=== PATIENT | female | born 1955 | race American Indian/Alaskan Native ===

== ENCOUNTER 2019-11-08 20:57 | Emergency (ER) | payer MEDICARE ==
--- NOTE | 2019-11-08 21:19 | Emergency Department Report ---
ED General Adult HPI - General Chief complaint: Pain General Stated complaint: DEHYDRATION/HEAD/NECK PAIN PUI?: No Time Seen by Provider: 11/08/19 21:15 Source: patient, police, EMS, RN notes reviewed Mode of arrival: Stretcher Limitations: No Limitations - History of Present Illness Initial comments: Patient is a 64-year-old female that [facility] for management of her chronic pain and possible dehydration. Patient was sent here from the [facility] the [facility]. Report received from the accompanying officer and the EMS. The officer states that the patient has been the [facility] for 5 days for chronic pain. Patient states she has chronic neck and back pain, degenerative disc in the neck and back. Patient states she is not had any pain medication. Patient states compliant with all of her medications. Patient denies dry mouth. Patient denies palpitations. Patient denies chest pain or shortness of breath. Patient denies fever and chills. Patient denies cough. Patient denies abdominal pain. Patient denies nausea and vomiting. Patient denies recent travel. Patient denies recent international travel. Patient denies exposure to the novel coronavirus. Patient denies sick contacts. Patient denies fever and chills. Patient denies cough. Patient denies diarrhea. Patient denies coming in contact with anybody with symptoms of the novel coronavirus. Patient states she has a history of diabetes, hyperlipidemia, depression, seizures, bipolar, hypertension, CHF and anticoagulation therapy with Eliquis. -: Gradual, year(s) Location: neck, back Radiation: non-radiation Severity scale (0 -10): 10 Quality: stabbing Consistency: constant Improves with: rest Worsens with: movement Associated Symptoms: denies: confusion, chest pain, cough, diaphoresis, fever /chills, headaches, loss of appetite, malaise, nausea/vomiting, rash, seizure, shortness of breath, syncope, weakness Treatments Prior to Arrival: none - Related Data Home Medications Medication Instructions Recorded Confirmed Last Taken Bupropion HCl [Wellbutrin XL] 1 tab PO DAILY 01/28/14 09/11/19 01/28/14 Gabapentin 1 cap PO TID 01/28/14 09/11/19 01/29/14 Rosuvastatin (Nf) [Crestor] 1 tab PO DAILY 01/28/14 09/11/19 01/29/14 carvediloL [Coreg] 1 tab PO BID 01/28/14 09/11/19 01/29/14 metFORMIN [Glucophage] 1 tab PO BID 01/28/14 09/11/19 01/29/14 Ergocalciferol [Vitamin D2] 1 cap PO QWEEK 01/30/14 09/11/19 01/29/14 Valsartan/Hydrochlorothiazide 1 tab PO DAILY 01/30/14 09/11/19 01/29/14 [Valsartan-Hctz 320-25 mg] AtorvaSTATin 80 mg PO HS 09/09/19 09/11/19 Unknown Escitalopram 15 mg PO DAILY 09/09/19 09/11/19 Unknown Ferrous Sulfate 325 mg PO DAILY 09/09/19 09/11/19 Unknown Lasix TAB 40 mg PO DAILY MDD 80 09/09/19 09/11/19 Unknown Meloxicam 15 mg PO DAILY 09/09/19 09/11/19 Unknown hydrALAZINE 25 mg PO BID 09/09/19 09/11/19 Unknown lamoTRIgine [lamoTRIgine ER] 25 mg PO BID 09/09/19 09/11/19 Unknown traZODone 150 mg PO HS 09/09/19 09/11/19 Unknown Previous Rx's Medication Instructions Recorded Last Taken Type Acetaminophen [Acetaminophen TAB] 650 mg PO Q4H PRN tablet 09/06/19 Unknown Rx Apixaban [Eliquis] 5 mg PO BID #14 tablet 09/06/19 Unknown Rx Apixaban [Eliquis] 5 mg PO BID #60 tablet 09/06/19 Unknown Rx Lispro Insulin [HumaLOG] 0 unit SUB-Q ACHS units 09/06/[address] [Arun Chavez] 500 mg PO BID #60 tablet 09/10/19 Unknown Rx OLANzapine [ZyPREXA] 5 mg PO QHS #30 tablet 09/10/19 Unknown Rx Magnesium Oxide [Mag-Ox] 400 mg PO DAILY 30 Days #30 tablet 11/08/19 Unknown Rx Potassium Chloride [K-Dur] 20 meq PO BID 30 Days #60 tab 11/08/19 Unknown Rx Allergies Allergy/AdvReac Type Severity Reaction Status Date / Time aspirin Allergy ABD PAIN Verified 01/24/14 14:11 ibuprofen Allergy Unknown Verified 09/04/19 06:25 latex Allergy Rash Verified 01/24/14 14:11 lithium Allergy Hives Verified 01/24/14 14:11 peanut Allergy Unknown Verified 09/04/19 06:25 Penicillins Allergy Itching Verified 01/24/14 14:11 quetiapine [From Seroquel] Allergy Unknown Verified 09/04/19 06:25 shellfish derived Allergy Vomiting Verified 09/04/19 06:25 tomato Allergy Unknown Verified 09/04/19 06:25 zolpidem [From Ambien] Allergy Unknown Verified 09/04/19 06:25 ED Review of Systems ROS: Stated complaint: DEHYDRATION/HEAD/NECK PAIN Other details as noted in HPI Constitutional: denies: chills, fever Eyes: denies: eye pain, eye discharge, vision change ENT: denies: ear pain, throat pain Respiratory: denies: cough, shortness of breath, wheezing Cardiovascular: denies: chest pain, palpitations Endocrine: no symptoms reported Gastrointestinal: denies: abdominal pain, nausea, diarrhea Genitourinary: denies: urgency, dysuria, discharge Musculoskeletal: as per HPI, back pain. denies: joint swelling, arthralgia Skin: denies: rash, lesions Neurological: denies: headache, weakness, paresthesias Psychiatric: denies: anxiety, depression Hematological/Lymphatic: denies: easy bleeding, easy bruising ED Past Medical Hx - Past Medical History Previous Medical History?: Yes Hx Hypertension: Yes Hx Heart Attack/AMI: Yes Hx Congestive Heart Failure: Yes Hx Diabetes: Yes Hx Pulmonary Embolism: Yes Hx Renal Disease: Yes (No diaylsis in one year.) Hx Psychiatric Treatment: Yes (bipolar schizo) Hx Asthma: Yes Hx COPD: Yes Hx Tuberculosis: No Hx HIV: No Additional medical history: Lupus. 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 - Surgical History Past Surgical History?: Yes Hx Appendectomy: Yes - Family History Family history: no significant - Social History Smoking Status: Former Smoker Substance Use Type: None - Medications Home Medications: Home Medications Medication Instructions Recorded Confirmed Last Taken Type Bupropion HCl [Wellbutrin XL] 1 tab PO DAILY 01/28/14 09/11/19 01/28/14 History Gabapentin 1 cap PO TID 01/28/14 09/11/19 01/29/14 History Rosuvastatin (Nf) [Crestor] 1 tab PO DAILY 01/28/14 09/11/1901/29/14 History carvediloL [Coreg] 1 tab PO BID 01/28/14 09/11/19 01/29/14 History metFORMIN [Glucophage] 1 tab PO BID 01/28/14 09/11/19 01/29/14 History Ergocalciferol [Vitamin D2] 1 cap PO QWEEK 01/30/14 09/11/19 01/29/14 History Valsartan/Hydrochlorothiazide 1 tab PO DAILY 01/30/14 09/11/19 01/29/14 History [Valsartan-Hctz 320-25 mg] Acetaminophen [Acetaminophen TAB] 650 mg PO Q4H PRN tablet 09/06/19 09/11/19 Unknown Rx Apixaban [Eliquis] 5 mg PO BID #14 tablet 09/06/19 09/11/19 Unknown Rx Apixaban [Eliquis] 5 mg PO BID #60 tablet 09/06/19 09/11/19 Unknown Rx Lispro Insulin [HumaLOG] 0 unit SUB-Q ACHS units 09/06/19 09/11/19 Unknown Rx AtorvaSTATin 80 mg PO HS 09/09/19 09/11/19 Unknown History Escitalopram 15 mg PO DAILY 09/09/19 09/11/19 Unknown History Ferrous Sulfate 325 mg PO DAILY 09/09/19 09/11/19 Unknown History Lasix TAB 40 mg PO DAILY MDD 80 09/09/19 09/11/19 Unknown History Meloxicam 15 mg PO DAILY 09/09/19 09/11/19 Unknown History hydrALAZINE 25 mg PO BID 09/09/19 09/11/19 Unknown History lamoTRIgine [lamoTRIgine ER] 25 mg PO BID 09/09/19 09/11/19 Unknown History traZODone 150 mg PO HS 09/09/19 09/11/19 Unknown History Divalproex [Arun Chavez] 500 mg PO BID #60 tablet 09/10/19 09/11/19 Unknown Rx OLANzapine [ZyPREXA] 5 mg PO QHS #30 tablet 09/10/19 09/11/19 Unknown Rx Magnesium Oxide [Mag-Ox] 400 mg PO DAILY 30 Days #30 tablet 11/08/19 Unknown Rx Potassium Chloride [K-Dur] 20 meq PO BID 30 Days #60 tab 11/08/19 Unknown Rx ED Physical Exam - General Limitations: No Limitations, Other General appearance: alert, in no apparent distress - Head Head exam: Present: atraumatic, normocephalic - Eye Eye exam: Present: normal appearance - ENT ENT exam: Present: mucous membranes moist - Neck Neck exam: Present: normal inspection - Respiratory Respiratory exam: Present: normal lung sounds bilaterally. Absent: respiratory distress - Cardiovascular Cardiovascular Exam: Present: regular rate, normal rhythm. Absent: systolic murmur, diastolic murmur, rubs, gallop - GI/Abdominal GI/Abdominal exam: Present: soft, normal bowel sounds - Extremities Exam Extremities exam: Present: normal inspection - Back Exam Back exam: Present: normal inspection - Neurological Exam Neurological exam: Present: alert, oriented X3 - Psychiatric Psychiatric exam: Present: normal affect, normal mood - Skin Skin exam: Present: warm, dry, intact, normal color. Absent: rash ED Course Vital Signs 11/08/19 11/08/19 11/09/19 21:00 21:18 00:27 Temperature 98.5 F Pulse Rate 75 81 Respiratory 10 L 16 19 Rate Blood Pressure 177/94 152/73 [Right] O2 Sat by Pulse 100 98 97 Oximetry - Reevaluation(s) Reevaluation #1: Patient states she is feeling better. Patient states her pain has decreased significantly. I discussed all results and clinical findings with patient. I discussed plan of care with patient. Patient agrees with plan of care. Patient is stable for discharge. Patient will be discharged home. Patient given discharge instructions. Patient voiced understanding of discharge instructions. 11/08/19 23:25 ED Medical Decision Making - Lab Data Result diagrams: 11/08/19 21:33 11/08/19 21:33 - Medical Decision Making Patient is a 64-year-old female that is currently a prisoner in [facility] that was sent here for medical evaluation and possible dehydration. Patient complains of chronic neck and back pain. I discussed with the patient that the chronic neck and back pain needs to be managed by an outpatient physician. Patient given Decadron 4 mg and her pain decreased. Patient had labs done which were consistent with hypokalemia and hypomagnesemia. Patient given oral potassium and magnesium in the ER. Patient discharged with a pre scription for magnesium and potassium. [facility] require [facility] the [facility]. Patient given discharge instructions. Patient stable for discharge. Instructions also given to the accompanying police worker. - Differential Diagnosis Chronic back pain, chronic neck pain, dehydration, electrolyte imbalance. Critical care attestation.: If time is entered above; I have spent that time in minutes in the direct care of this critically ill patient, excluding procedure time. ED Disposition Clinical Impression: Hypokalemia, Hypomagnesemia Chronic back pain Qualifiers: Back pain location: low back pain Back pain laterality: bilateral Sciatica presence: without sciatica Qualified Code(s): M54.5 - Low back pain Disposition: DC- TO HOME OR SELFCARE Is pt being admited?: No Does the pt Need Aspirin: No Condition: Stable Instructions: Hypokalemia (ED) Additional Instructions: Patient to be discharged from the ER return to [facility] with [facility]. Patient to follow-up with primary care in 2 to 3 days. Patient will require potassium and magnesium check in 2 to 3 days. Patient to rest. Patient to increase water. Patient to follow-up with an orthopedist or pain management for her chronic neck and back pain. Patient to take Tylenol or ibuprofen as needed for pain. Patient to take meds as directed. Patient to return to the ER if condition worsens, changes or new symptoms arise. Prescriptions: Potassium Chloride [K-Dur] 20 meq PO BID 30 Days #60 tab Magnesium Oxide [Mag-Ox] 400 mg PO DAILY 30 Days #30 tablet Referrals: PRIMARY CARE, [Primary Care Provider] - 2-3 Days Time of Disposition: 23:25
[2019-11-08] MEDS ORDERED: dexAMETHasone 4 MG/ML VIAL IV ONE (21:26)
[2019-11-08] MEDS ORDERED: dexAMETHasone 4 MG/ML VIAL ONE (21:28)
[2019-11-08 21:43] LABS: Hematocrit 29.1 % (30.3-42.9); Hemoglobin 10.5 gm/dl (10.1-14.3); Mean Corpuscular HGB Conc 36 % (30-34); Mean Corpuscular Volume 84 fl (79-97); Platelet Count 172 K/mm3 (140-440); Red Blood Count 3.46 M/mm3 (3.65-5.03); Red Cell Distribution Width 15.7 % (13.2-15.2)
[2019-11-08 22:08] LABS: Alanine Aminotransferase 9 units/L (7-56); Albumin 3.1 g/dL (3.9-5); BUN/Creatinine Ratio 16; Blood Urea Nitrogen 16 mg/dL (7-17); Calcium 9.4 mg/dL (8.4-10.2); Hemolysis Index 4
[2019-11-08] MEDS ORDERED: POTASSIUM CHLORIDE ER 20 MEQ TAB PO ONE (22:24)
[2019-11-08] MEDS ORDERED: MAGNESIUM OXIDE 400 MG TAB PO ONE (23:23)
[2019-11-09 00:28] VITALS: BP 152/73
== END 2019-11-09 00:37 | disposition home or self-care (01) ==
LOC: ED 20:57
DX: E87.6 Hypokalemia (principal); E83.42 Hypomagnesemia; M54.6 Pain in thoracic spine; G89.29 Other chronic pain; I50.9 Heart failure, unspecified; I11.0 Hypertensive heart disease with heart failure; I25.2 Old myocardial infarction; E11.9 Type 2 diabetes mellitus without complications; J44.9 Chronic obstructive pulmonary disease, unspecified; F20.9 Schizophrenia, unspecified; Z90.49 Acquired absence of other specified parts of digestive tract; Z87.891 Personal history of nicotine dependence; Z79.84 Long term (current) use of oral hypoglycemic drugs; Z79.899 Other long term (current) drug therapy; Z88.0 Allergy status to penicillin; Z88.8 Allergy status to other drugs, medicaments and biological substances; Z91.010 Allergy to peanuts; Z91.040 Latex allergy status
CPT/HCPCS: 36415; 80053; 83735; 85027; 96374; 99284; J1100

== ENCOUNTER 2019-11-18 07:48 | Observation (INO) | payer MEDICARE, OTHER ==
[2019-11-18] MEDS ORDERED: ONDANSETRON 4 MG/2 ML INJ IV ONE (10:34)
[2019-11-18] MEDS ORDERED: NITROGLYCERIN 2% OINT 1 GM TP ONE (10:34)
[2019-11-18] MEDS ORDERED: fentaNYL 100 MCG/2 ML INJ IV ONE (10:34)
--- NOTE | 2019-11-18 10:38 | Emergency Department Report ---
HPI - General Chief Complaint: Chest Pain Time Seen by Provider: 11/18/19 10:25 - HPI HPI: Room 2 The patient is a 64-year-old female present with a chief complaint of chest pain. Patient states she has had daily chest pain for 1 year and this worsened a couple months ago. Patient describes her pain as sharp and intermittent in nature. Patient admits to shortness of breath, nausea/vomiting and diaphoresis. Patient gives her pain a score of 10/10. The patient states her last cardiac catheterization occurred approximately 3 years ago when she had a heart stent placed ED Past Medical Hx - Past Medical History Previous Medical History?: Yes Hx Hypertension: Yes Hx Heart Attack/AMI: Yes Hx Congestive Heart Failure: Yes Hx Diabetes: Yes Hx Pulmonary Embolism: Yes Hx Renal Disease: Yes (No diaylsis in one year.) Hx Psychiatric Treatment: Yes (bipolar schizo) Hx Asthma: Yes Hx COPD: Yes Additional medical history: Lupus. 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 - Surgical History Past Surgical History?: Yes Hx Appendectomy: Yes - Family History Family history: no significant - Social History Smoking Status: Never Smoker Substance Use Type: None - Medications Home Medications: Home Medications Medication Instructions Recorded Confirmed Last Taken Type Bupropion HCl [Wellbutrin XL] 1 tab PO DAILY 01/28/14 09/11/19 01/28/14 History Gabapentin 1 cap PO TID 01/28/14 09/11/19 01/29/14 History Rosuvastatin (Nf) [Crestor] 1 tab PO DAILY 01/28/14 09/11/19 01/29/14 History carvediloL [Coreg] 1 tab PO BID 01/28/14 09/11/19 01/29/14 History metFORMIN [Glucophage] 1 tab PO BID 01/28/14 09/11/19 01/29/14 History Ergocalciferol [Vitamin D2] 1 cap PO QWEEK 01/30/14 09/11/19 01/29/14 History Valsartan/Hydrochlorothiazide 1 tab PO DAILY 01/30/14 09/11/19 01/29/14 History [Valsartan-Hctz 320-25 mg] Acetaminophen [Acetaminophen TAB] 650 mg PO Q4H PRN tablet 09/06/19 09/11/19 Unknown Rx Apixaban [Eliquis] 5 mg PO BID #14 tablet 09/06/19 09/11/19 Unknown Rx Apixaban [Eliquis] 5 mg PO BID #60 tablet 09/06/19 09/11/19 Unknown Rx Lispro Insulin [HumaLOG] 0 unit SUB-Q ACHS units 09/06/19 09/11/19 Unknown Rx AtorvaSTATin 80 mg PO HS 09/09/19 09/11/19 Unknown History Escitalopram 15 mg PO DAILY 09/09/19 09/11/19 Unknown History Ferrous Sulfate 325 mg PO DAILY 09/09/19 09/11/19 Unknown History Lasix TAB 40 mg PO DAILY MDD 80 09/09/19 09/11/19 Unknown History Meloxicam 15 mg PO DAILY 09/09/19 09/11/19 Unknown History hydrALAZINE 25 mg PO BID 09/09/19 09/11/19 Unknown History lamoTRIgine [lamoTRIgine ER] 25 mg PO BID 09/09/19 09/11/19 Unknown History traZODone 150 mg PO HS 09/09/19 09/11/[address] [Arun Chavez] 500 mg PO BID #60 tablet 09/10/19 09/11/19 Unknown Rx OLANzapine [ZyPREXA] 5 mg PO QHS #30 tablet 09/10/19 09/11/19 Unknown Rx Magnesium Oxide [Mag-Ox] 400 mg PO DAILY 30 Days #30 tablet 11/08/19 Unknown Rx Potassium Chloride [K-Dur] 20 meq PO BID 30 Days #60 tab 11/08/19 Unknown Rx ED Review of Systems ROS: Stated complaint: MEDICAL EVAL Other details as noted in HPI Constitutional: diaphoresis Respiratory: shortness of breath Cardiovascular: chest pain Endocrine: no symptoms reported Gastrointestinal: nausea, vomiting Physical Exam - Physical Exam Vital Signs: Vital Signs 11/18/19 11/18/19 09:31 09:36 Temperature 98.8 F Pulse Rate 87 Respiratory 18 18 Rate Blood Pressure 129/35 O2 Sat by Pulse 98 Oximetry Physical Exam: GENERAL: The patient is well-developed well-nourished female lying on stretcher not appearing to be in acute distress. [] HEENT: Normocephalic. Atraumatic. Extraocular motions are intact. Patient has moist mucous membranes. NECK: Supple. Trachea midline CHEST/LUNGS: Clear to auscultation. There is no respiratory distress noted. HEART/CARDIOVASCULAR: Regular. There is no tachycardia. There is no gallop rub or murmur. ABDOMEN: Abdomen is soft, nontender. Patient has normal bowel sounds. There is no abdominal distention. SKIN: There is no rash. There is no edema. There is no diaphoresis. NEURO: The patient is awake, alert, and oriented. The patient is cooperative. The patient has normal speech MUSCULOSKELETAL: There is no evidence of acute injury. ED Course Vital Signs 11/18/19 11/18/19 09:31 09:36 Temperature 98.8 F Pulse Rate 87 Respiratory 18 18 Rate Blood Pressure 129/35 O2 Sat by Pulse 98 Oximetry ED Medical Decision Making - Lab Data Result diagrams: 11/18/19 10:26 11/18/19 10:26 Laboratory Tests 11/18/19 11/18/19 11/18/19 10:26 10:26 10:26 WBC 10.9 RBC 4.14 Hgb 12.4 Hct 36.4 MCV 88 MCH 30 MCHC 34 RDW 16.6 H Plt Count 150 Lymph % (Auto) [employer] Brewster % (Auto) [employer] Eos % (Auto) [employer] Baso % (Auto) [employer] Lymph # (Auto) [employer] [place]ster # (Auto) [employer] Eos # (Auto) [employer] Baso # (Auto) [employer] Seg Neutrophils % [employer] Seg Neutrophils # [employer] PT 13.0 INR 0.96 Sodium 133 L Potassium 3.9 Chloride 99.9 Carbon Dioxide 23 Anion Gap 14 BUN 24 H Creatinine 1.3 H Estimated GFR 50 BUN/Creatinine Ratio 18 Glucose 148 H Calcium 11.0 H Magnesium 1.50 L Troponin T 0.014 - EKG Data -: EKG Interpreted by Me EKG shows normal: sinus rhythm Rate: normal - EKG Data When compared to previous EKG there are: previous EKG unavailable Interpretation: other (No ischemic changes seen) - Radiology Data Radiology results: image reviewed (Chest x-ray) interpreted by me: Chest x-ray-no focal infiltrates, no pneumothorax Critical care attestation.: If time is entered above; I have spent that time in minutes in the direct care of this critically ill patient, excluding procedure time. ED Disposition Clinical Impression: Chest pain Disposition: OP ADMIT IP TO THIS HOSP Is pt being admited?: Yes Does the pt Need Aspirin: No Condition: Stable Instructions: Chest Pain (ED) Referrals: LENARD FOSS MD [Primary Care Provider] - 3-5 Days Time of Disposition: 12:18 (Hospitalist notified (Dr. Rodarte)) HEART Score - HEART Score History: Moderately suspicious EKG: Normal Age: 45-65 Risk factors: > 3 risk factors or hx of atherosclerotic disease Troponin: Troponin T 0.014 ng/mL (0.00-0.029) 11/18/19 10:26 Troponin: < normal limit HEART Score: 4
[2019-11-18 11:16] LABS: Hematocrit 36.4 % (30.3-42.9); Hemoglobin 12.4 gm/dl (10.1-14.3); Mean Corpuscular HGB Conc 34 % (30-34); Mean Corpuscular Volume 88 fl (79-97); Platelet Count 150 K/mm3 (140-440); Red Blood Count 4.14 M/mm3 (3.65-5.03); Red Cell Distribution Width 16.6 % (13.2-15.2)
[2019-11-18 11:21] LABS: INR 0.96 (0.87-1.13)
[2019-11-18] MEDS ORDERED: MAGNESIUM SULFATE 2 GM/50 ML BAG IV ONE (12:01)
[2019-11-18] MEDS ORDERED: SODIUM CHLORIDE 0.9% 1000 ML 2,000 ML IV ONE (12:46)
[2019-11-18] MEDS ORDERED: SODIUM CHLORIDE 0.9% 1000 ML 2,000 ML ONE (12:55)
[2019-11-18] MEDS ORDERED: PANTOPRAZOLE 40 MG TAB PO ONE (13:30)
--- NOTE | 2019-11-18 14:46 | Cat Scan Report ---
CTA CHEST WITH IV CONTRAST INDICATION: Chest pain. TECHNIQUE: Axial CT images were obtained through the chest after injection of 100 cc Omni 350 IV contrast. 3 yovana ne MIP reconstructions were produced. All CT scans at this location are performed using CT dose reduc tion for ALARA by means of automated exposure control. COMPARISON: CTA chest 09/04/2019 FINDINGS: PULMONARY ARTERIES: Multiple moderate sized acute nonocclusive emboli within right upper, middle and lower lobe segmental pulmonary arteries. Several somewhat linear oriented filling defects are seen wi thin the left upper and lower lobe segmental pulmonary arteries. THORACIC AORTA: No acute abnormality. HEART: No definite CT evidence for RV strain. CORONARY ARTERIES: No significant calcification. PLEURA: No pleural effusion. No pneumothorax. LYMPH NODES: No significant adenopathy. LUNGS: Mild groundglass/increased interstitial markings both lower lobes and right upper lobe charact eristic for mild pulmonary edema ADDITIONAL FINDINGS: None. UPPER ABDOMEN: Gallbladder surgically absent. 2 simple 1 cm right renal cysts. Probable hyperdense he morrhagic 9 mm left renal cyst again noted. SKELETAL STRUCTURES: No significant osseous abnormality. IMPRESSION: 1. Acute moderate bilateral pulmonary emboli. 2. Probable mild CHF. CRITICAL RESULT: Time of Discovery: 1:38 PM central time 11/18/2019 Time of Communication: 1:39 PM Licensed Practitioner Receiving Report: Dr. Epps Read Back Performed: Yes. Signer Name: Geoff Borrego MD Signed: 11/18/2019 2:42 PM Workstation Name: [id number]
[2019-11-18] MEDS ORDERED: APIXABAN 5 MG TAB ONE (15:05)
[2019-11-18] MEDS ORDERED: APIXABAN 5 MG TAB PO SCH (15:30)
[2019-11-18 17:20] VITALS: BP 145/60
--- NOTE | 2019-11-21 12:30 | XRay Report ---
CHEST 1 VIEW INDICATION: Chest Pain. COMPARISON: 09/11/2019 FINDINGS: Support devices: None. Heart: Within normal limits. Lungs/Pleura: No acute air space or interstitial disease. Additional findings: None. IMPRESSION: No acute findings. Signer Name: Jordin Rosales Jr, MD Signed: 11/21/2019 12:25 PM Workstation Name: [id number]
== END 2019-11-18 17:21 ==
LOC: ED 07:48 → 4A 13:08
PROVIDERS: ADMIT Internal Medicine; ATTEND Internal Medicine
DX: R07.89 Other chest pain (principal); I11.0 Hypertensive heart disease with heart failure; I50.9 Heart failure, unspecified; E11.9 Type 2 diabetes mellitus without complications; J44.9 Chronic obstructive pulmonary disease, unspecified; F20.89 Other schizophrenia; F31.9 Bipolar disorder, unspecified; M32.9 Systemic lupus erythematosus, unspecified; Z86.711 Personal history of pulmonary embolism; Z90.49 Acquired absence of other specified parts of digestive tract; Z79.4 Long term (current) use of insulin
CPT/HCPCS: 36415; 71045; 71275; 80048; 83735; 84484; 85025; 85379; 85610; 93005; 96365; 96375; 99285; G0378; J2405; J3010; J3475; J7030; Q9967

== ENCOUNTER 2019-12-14 10:14 | Inpatient (IN) | payer MEDICARE ==
[2019-12-14] MEDS ORDERED: SODIUM CHLORIDE 0.9% 500 ML 500 ML IV ONE ×2 (10:26→11:10)
[2019-12-14] MEDS ORDERED: ATROPINE 1 MG/ML VIAL IV ONE (10:27)
[2019-12-14] MEDS ORDERED: SODIUM CHLORIDE 0.9% 1000 ML 1,000 ML ONE ×3 (10:30→20:11)
--- NOTE | 2019-12-14 10:35 | Emergency Department Report ---
HPI - General Time Seen by Provider: 12/14/19 10:23 - HPI HPI: This is a 64-year-old female who presents to the emergency department via EMS from a local [facility] facility with the initial call for altered mental status. The patient is altered and therefore is a poor historian. She is nonverbal at this time. Patient appears to have a history of previous pulmonary embolism, coronary artery disease with a coronary stent, uwh-[id number]-zycolpese diabetes, asthma, lupus, COPD, hypertension, CHF, chronic kidney disease not on hemodialysis. The patient did not receive anything for her symptoms in route. She had a blood sugar of 113 with EMS. Patient was here on 11/20/2019 with a complaint of chest pain at that time. She was evaluated in the emergency department and ultimately discharged by the hospitalist service from the emergency department. Based on previous records, the patient last had a heart catheterization about 3 years ago in which a cardiac stent was placed. ED Past Medical Hx - Past Medical History Hx Hypertension: Yes Hx Heart Attack/AMI: Yes Hx Congestive Heart Failure: Yes Hx Diabetes: Yes Hx Pulmonary Embolism: Yes Hx Renal Disease: Yes (No diaylsis in one year.) Hx Psychiatric Treatment: Yes (bipolar schizo) Hx Asthma: Yes Hx COPD: Yes Additional medical history: Lupus. 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 - Surgical History Hx Appendectomy: Yes - Social History Smoking Status: Never Smoker Substance Use Type: None - Medications Home Medications: Home Medications Medication Instructions Recorded Confirmed Last Taken Type Bupropion HCl [Wellbutrin XL] 1 tab PO DAILY 01/28/14 09/11/19 01/28/14 History Gabapentin 1 cap PO TID 01/28/14 09/11/19 01/29/14 History Rosuvastatin (Nf) [Crestor] 1 tab PO DAILY 01/28/14 09/11/19 01/29/14 History carvediloL [Coreg] 1 tab PO BID 01/28/14 09/11/19 01/29/14 History metFORMIN [Glucophage] 1 tab PO BID 01/28/14 09/11/19 01/29/14 History Ergocalciferol [Vitamin D2] 1 cap PO QWEEK 01/30/14 09/11/19 01/29/14 History Valsartan/Hydrochlorothiazide 1 tab PO DAILY 01/30/14 09/11/19 01/29/14 History [Valsartan-Hctz 320-25 mg] Acetaminophen [Acetaminophen TAB] 650 mg PO Q4H PRN tablet 09/06/19 09/11/19 Unknown Rx Apixaban [Eliquis] 5 mg PO BID #14 tablet 09/06/19 09/11/19 Unknown Rx Apixaban [Eliquis] 5 mg PO BID #60 tablet 09/06/19 09/11/19 Unknown Rx Lispro Insulin [HumaLOG] 0 unit SUB-Q ACHS units 09/06/19 09/11/19 Unknown Rx AtorvaSTATin 80 mg PO HS 09/09/19 09/11/19 Unknown History Escitalopram 15 mg PO DAILY 09/09/19 09/11/19 Unknown History Ferrous Sulfate 325 mg PO DAILY 09/09/19 09/11/19 Unknown History Lasix TAB 40 mg PO DAILY MDD 80 09/09/19 09/11/19 Unknown History Meloxicam 15 mg PO DAILY 09/09/19 09/11/19 Unknown History hydrALAZINE 25 mg PO BID 09/09/19 09/11/19 Unknown History lamoTRIgine [lamoTRIgine ER] 25 mg PO BID 09/09/19 09/11/19 Unknown History traZODone 150 mg PO HS 09/09/19 09/11/[address] [Arun Chavez] 500 mg PO BID #60 tablet 09/10/19 09/11/19 Unknown Rx OLANzapine [ZyPREXA] 5 mg PO QHS #30 tablet 09/10/19 09/11/19 Unknown Rx Magnesium Oxide [Mag-Ox] 400 mg PO DAILY 30 Days #30 tablet 11/08/19 Unknown Rx Potassium Chloride [K-Dur] 20 meq PO BID 30 Days #60 tab 11/08/19 Unknown Rx Apixaban [Eliquis] 5 mg PO BID #74 tablet 11/18/19 Unknown Rx ED Review of Systems ROS: Stated complaint: POSSIBLE STEMI Other details as noted in HPI Comment: Unobtainable due to pts medical conditions Physical Exam - Physical Exam Physical Exam: GENERAL: Patient is ill-appearing. HENT: Normocephalic. Atraumatic. Patient has moist mucous membranes. EYES: Pupils equal reactive to light bilaterally. NECK: Supple. Trachea is midline. CHEST/LUNGS: Clear to auscultation. There is no respiratory distress noted. HEART/CARDIOVASCULAR: Regular. There is severe bradycardia. ABDOMEN: Abdomen is soft, nontender. Patient has normal bowel sounds. SKIN: Skin is warm and dry. NEURO: The patient will open her eyes spontaneously but is often just staring straight ahead. No intelligible words or sounds. Not following commands. With draws from painful stimuli. MUSCULOSKELETAL: There is no obvious deformity. ED Course - Reevaluation(s) Reevaluation #1: 12/14/19 14:54 Lab Results 12/14/19 12/14/19 12/14/19 Range/Units 10:37 10:50 10:50 WBC 1.7 L* (4.5-11.0) K/mm3 RBC 1.97 L (3.65-5.03) M/mm3 Hgb 5.9 L* (10.1-14.3) gm/dl Hct 17.6 L* (30.3-42.9) % MCV 89 (79-97) fl MCH 30 (28-32) pg MCHC 33 (30-34) % RDW 20.4 H (13.2-15.2) % Plt Count 73 L (140-440) K/mm3 Add Manual Diff Complete Total Counted 100 Seg Neuts % (Manual) 85.0 H (40.0-70.0) % Band Neutrophils % 0 % Lymphocytes % (Manual) 13.0 L (13.4-35.0) % Reactive Lymphs % (Man) 0 % Monocytes % (Manual) 1.0 (0.0-7.3) % Eosinophils % (Manual) 1.0 (0.0-4.3) % Basophils % (Manual) 0 (0.0-1.8) % Metamyelocytes % 0 % Myelocytes % 0 % Promyelocytes % 0 % Blast Cells % 0 % Nucleated RBC % 1.0 H (0.0-0.9) % Seg Neutrophils # Man 1.4 L (1.8-7.7) K/mm3 Band Neutrophils # 0.0 K/mm3 Lymphocytes # (Manual) 0.2 L (1.2-5.4) K/mm3 Abs React Lymphs (Man) 0.0 K/mm3 Monocytes # (Manual) 0.0 (0.0-0.8) K/mm3 Eosinophils # (Manual) 0.0 (0.0-0.4) K/mm3 Basophils # (Manual) 0.0 (0.0-0.1) K/mm3 Metamyelocytes # 0.0 K/mm3 Myelocytes # 0.0 K/mm3 Promyelocytes # 0.0 K/mm3 Blast Cells # 0.0 K/mm3 WBC Morphology Not Reportable Hypersegmented Neuts Not Reportable Hyposegmented Neuts Not Reportable Hypogranular Neuts Not Reportable Smudge Cells Not Reportable Toxic Granulation Not Reportable Toxic Vacuolation Not Reportable Dohle Bodies Not Reportable Pelger-Huet Anomaly Not Reportable Lucretia Rods Not Reportable Platelet Estimate Consistent w auto Clumped Platelets Not Reportable Plt Clumps, EDTA Not Reportable Large Platelets Not Reportable Giant Platelets Not Reportable Platelet Satelliting Not Reportable Plt Morphology Comment Not Reportable RBC Morphology Not Reportable Dimorphic RBCs Not Reportable Polychromasia Not Reportable Hypochromasia Not Reportable Poikilocytosis 1+ Anisocytosis 1+ Microcytosis Not Reportable Macrocytosis Not Reportable Spherocytes Not Reportable Pappenheimer Bodies Not Reportable Sickle Cells Not Reportable Target Cells Rare Tear Drop Cells Not Reportable Ovalocytes Not Reportable Helmet Cells Not Reportable [place] Bodies Not Reportable Savage Rings Not Reportable [place] Cells 1+ Bite Cells Not Reportable Crenated Cell Not Reportable Elliptocytes Not Reportable Acanthocytes (Spur) Not Reportable Rouleaux Not Reportable Hemoglobin C Crystals Not Reportable Schistocytes Not Reportable Malaria parasites Not Reportable Lux Bodies Not Reportable Hem Pathologist Commnt No PT (12.2-14.9) Sec. INR (0.87-1.13) APTT (24.2-36.6) Sec. ABG pH (7.320-7.450) POC ABG pCO2 (32.0-48.0) mmHg POC ABG pO2 (83-108) mmHg POC ABG HCO3 POC ABG Base Excess ABG Hemoglobin (12.0-17.5) ABG Sodium (136.0-145.0) mmol/L ABG Potassium (3.40-4.50) mmol/L ABG Chloride (98-107) mmol/L ABG Glucose (65-95) mg/dL FiO2 Sodium 141 (137-145) mmol/L Potassium 2.0 L* (3.6-5.0) mmol/L Chloride 116.5 H (98-107) mmol/L Carbon Dioxide 16 L (22-30) mmol/L Anion Gap 11 mmol/L BUN 17 (7-17) mg/dL Creatinine 1.0 (0.6-1.2) mg/dL Estimated GFR > 60 ml/min BUN/Creatinine Ratio 17 % Glucose 66 (65-100) mg/dL POC Glucose 117 H (70-105) mg/dL Calcium 5.0 L* (8.4-10.2) mg/dL Magnesium (1.7-2.3) mg/dL Total Bilirubin < 0.20 (0.1-1.2) mg/dL AST 17 (5-40) units/L ALT 9 (7-56) units/L Alkaline Phosphatase 17 L (35-129) units/L Ammonia (25-60) umol/L Troponin T 0.016 (0.00-0.029) ng/mL Total Protein 2.6 L (6.3-8.2) g/dL Albumin 1.4 L (3.9-5) g/dL Albumin/Globulin Ratio 1.2 % Triglycerides (2-149) mg/dL Cholesterol (50-199) mg/dL LDL Cholesterol Direct (50-130) mg/dL HDL Cholesterol (40-59) mg/dL Cholesterol/HDL Ratio % TSH (0.270-4.200) mlU/mL Arterial Blood Glucose (65-95) mg/dL Arterial Blood Ionized Calcium (4.6-5.3) mg/dL Valproic Acid (50-100) ug/mL Plasma/Serum Alcohol (0-0.07) % Blood Type Antibody Screen Crossmatch 12/14/19 12/14/19 12/14/19 Range/Units 10:50 10:50 10:50 WBC (4.5-11.0) K/mm3 RBC (3.65-5.03) M/mm3 Hgb (10.1-14.3) gm/dl Hct (30.3-42.9) % MCV (79-97) fl MCH (28-32) pg MCHC (30-34) % RDW (13.2-15.2) % Plt Count (140-440) K/mm3 Add Manual Diff Total Counted Seg Neuts % (Manual) (40.0-70.0) % Band Neutrophils % % Lymphocytes % (Manual) (13.4-35.0) % Reactive Lymphs % (Man) % Monocytes % (Manual) (0.0-7.3) % Eosinophils % (Manual) (0.0-4.3) % Basophils % (Manual) (0.0-1.8) % Metamyelocytes % % Myelocytes % % Promyelocytes % % Blast Cells % % Nucleated RBC % (0.0-0.9) % Seg Neutrophils # Man (1.8-7.7) K/mm3 Band Neutrophils # K/mm3 Lymphocytes # (Manual) (1.2-5.4) K/mm3 Abs React Lymphs (Man) K/mm3 Monocytes # (Manual) (0.0-0.8) K/mm3 Eosinophils # (Manual) (0.0-0.4) K/mm3 Basophils # (Manual) (0.0-0.1) K/mm3 Metamyelocytes # K/mm3 Myelocytes # K/mm3 Promyelocytes # K/mm3 Blast Cells # K/mm3 WBC Morphology Hypersegmented Neuts Hyposegmented Neuts Hypogranular Neuts Smudge Cells Toxic Granulation Toxic Vacuolation Dohle Bodies Pelger-Huet Anomaly Lucretia Rods Platelet Estimate Clumped Platelets Plt Clumps, EDTA Large Platelets Giant Platelets Platelet Satelliting Plt Morphology Comment RBC Morphology Dimorphic RBCs Polychromasia Hypochromasia Poikilocytosis Anisocytosis Microcytosis Macrocytosis Spherocytes Pappenheimer Bodies Sickle Cells Target Cells Tear Drop Cells Ovalocytes Helmet Cells [place] Bodies Savage Rings [place] Cells Bite Cells Crenated Cell Elliptocytes Acanthocytes (Spur) Rouleaux Hemoglobin C Crystals Schistocytes Malaria parasites Lux Bodies Hem Pathologist Commnt PT (12.2-14.9) Sec. INR (0.87-1.13) APTT (24.2-36.6) Sec. ABG pH (7.320-7.450) POC ABG pCO2 (32.0-48.0) mmHg POC ABG pO2 (83-108) mmHg POC ABG HCO3 POC ABG Base Excess ABG Hemoglobin (12.0-17.5) ABG Sodium (136.0-145.0) mmol/L ABG Potassium (3.40-4.50) mmol/L ABG Chloride (98-107) mmol/L ABG Glucose (65-95) mg/dL FiO2 Sodium (137-145) mmol/L Potassium (3.6-5.0) mmol/L Chloride (98-107) mmol/L Carbon Dioxide (22-30) mmol/L Anion Gap mmol/L BUN (7-17) mg/dL Creatinine (0.6-1.2) mg/dL Estimated GFR ml/min BUN/Creatinine Ratio % Glucose (65-100) mg/dL POC Glucose (70-105) mg/dL Calcium (8.4-10.2) mg/dL Magnesium (1.7-2.3) mg/dL Total Bilirubin (0.1-1.2) mg/dL AST (5-40) units/L ALT (7-56) units/L Alkaline Phosphatase (35-129) units/L Ammonia 15.0 L (25-60) umol/L Troponin T (0.00-0.029) ng/mL Total Protein (6.3-8.2) g/dL Albumin (3.9-5) g/dL Albumin/Globulin Ratio % Triglycerides (2-149) mg/dL Cholesterol (50-199) mg/dL LDL Cholesterol Direct (50-130) mg/dL HDL Cholesterol (40-59) mg/dL Cholesterol/HDL Ratio % TSH 1.500 (0.270-4.200) mlU/mL Arterial Blood Glucose (65-95) mg/dL Arterial Blood Ionized Calcium (4.6-5.3) mg/dL Valproic Acid (50-100) ug/mL Plasma/Serum Alcohol < 0.01 (0-0.07) % Blood Type Antibody Screen Crossmatch 12/14/19 12/14/19 12/14/19 Range/Units 10:50 12:15 12:15 WBC (4.5-11.0) K/mm3 RBC (3.65-5.03) M/mm3 Hgb (10.1-14.3) gm/dl Hct (30.3-42.9) % MCV (79-97) fl MCH (28-32) pg MCHC (30-34) % RDW (13.2-15.2) % Plt Count (140-440) K/mm3 Add Manual Diff Total Counted Seg Neuts % (Manual) (40.0-70.0) % Band Neutrophils % % Lymphocytes % (Manual) (13.4-35.0) % Reactive Lymphs % (Man) % Monocytes % (Manual) (0.0-7.3) % Eosinophils % (Manual) (0.0-4.3) % Basophils % (Manual) (0.0-1.8) % Metamyelocytes % % Myelocytes % % Promyelocytes % % Blast Cells % % Nucleated RBC % (0.0-0.9) % Seg Neutrophils # Man (1.8-7.7) K/mm3 Band Neutrophils # K/mm3 Lymphocytes # (Manual) (1.2-5.4) K/mm3 Abs React Lymphs (Man) K/mm3 Monocytes # (Manual) (0.0-0.8) K/mm3 Eosinophils # (Manual) (0.0-0.4) K/mm3 Basophils # (Manual) (0.0-0.1) K/mm3 Metamyelocytes # K/mm3 Myelocytes # K/mm3 Promyelocytes # K/mm3 Blast Cells # K/mm3 WBC Morphology Hypersegmented Neuts Hyposegmented Neuts Hypogranular Neuts Smudge Cells Toxic Granulation Toxic Vacuolation Dohle Bodies Pelger-Huet Anomaly Lucretia Rods Platelet Estimate Clumped Platelets Plt Clumps, EDTA Large Platelets Giant Platelets Platelet Satelliting Plt Morphology Comment RBC Morphology Dimorphic RBCs Polychromasia Hypochromasia Poikilocytosis Anisocytosis Microcytosis Macrocytosis Spherocytes Pappenheimer Bodies Sickle Cells Target Cells Tear Drop Cells Ovalocytes Helmet Cells [place] Bodies Savage Rings Mone Cells Bite Cells Crenated Cell Elliptocytes Acanthocytes (Spur) Rouleaux Hemoglobin C Crystals Schistocytes Malaria parasites Lux Bodies Hem Pathologist Commnt PT 97.2 H (12.2-14.9) Sec. INR 12.40 H* (0.87-1.13) APTT 90.2 H* (24.2-36.6) Sec. ABG pH (7.320-7.450) POC ABG pCO2 (32.0-48.0) mmHg POC ABG pO2 (83-108) mmHg POC ABG HCO3 POC ABG Base Excess ABG Hemoglobin (12.0-17.5) ABG Sodium (136.0-145.0) mmol/L ABG Potassium (3.40-4.50) mmol/L ABG Chloride (98-107) mmol/L ABG Glucose (65-95) mg/dL FiO2 Sodium (137-145) mmol/L Potassium (3.6-5.0) mmol/L Chloride (98-107) mmol/L Carbon Dioxide (22-30) mmol/L Anion Gap mmol/L BUN (7-17) mg/dL Creatinine (0.6-1.2) mg/dL Estimated GFR ml/min BUN/Creatinine Ratio % Glucose (65-100) mg/dL POC Glucose (70-105) mg/dL Calcium (8.4-10.2) mg/dL Magnesium (1.7-2.3) mg/dL Total Bilirubin (0.1-1.2) mg/dL AST (5-40) units/L ALT (7-56) units/L Alkaline Phosphatase (35-129) units/L Ammonia (25-60) umol/L Troponin T 0.033 H D (0.00-0.029) ng/mL Total Protein (6.3-8.2) g/dL Albumin (3.9-5) g/dL Albumin/Globulin Ratio % Triglycerides 76 (2-149) mg/dL Cholesterol 71 (50-199) mg/dL LDL Cholesterol Direct 15 L (50-130) mg/dL HDL Cholesterol 37 L (40-59) mg/dL Cholesterol/HDL Ratio 1.91 % TSH (0.270-4.200) mlU/mL Arterial Blood Glucose (65-95) mg/dL Arterial Blood Ionized Calcium (4.6-5.3) mg/dL Valproic Acid (50-100) ug/mL Plasma/Serum Alcohol (0-0.07) % Blood Type O POSITIVE Antibody Screen Negative Crossmatch See Detail 12/14/19 12/14/19 12/14/19 Range/Units 12:15 12:15 12:15 WBC 3.8 L (4.5-11.0) K/mm3 RBC 3.36 L (3.65-5.03) M/mm3 Hgb 10.1 D (10.1-14.3) gm/dl Hct 29.8 L D (30.3-42.9) % MCV 89 (79-97) fl MCH 30 (28-32) pg MCHC 34 (30-34) % RDW 20.5 H (13.2-15.2) % Plt Count 130 L (140-440) K/mm3 Add Manual Diff Total Counted Seg Neuts % (Manual) (40.0-70.0) % Band Neutrophils % % Lymphocytes % (Manual) (13.4-35.0) % Reactive Lymphs % (Man) % Monocytes % (Manual) (0.0-7.3) % Eosinophils % (Manual) (0.0-4.3) % Basophils % (Manual) (0.0-1.8) % Metamyelocytes % % Myelocytes % % Promyelocytes % % Blast Cells % % Nucleated RBC % (0.0-0.9) % Seg Neutrophils # Man (1.8-7.7) K/mm3 Band Neutrophils # K/mm3 Lymphocytes # (Manual) (1.2-5.4) K/mm3 Abs React Lymphs (Man) K/mm3 Monocytes # (Manual) (0.0-0.8) K/mm3 Eosinophils # (Manual) (0.0-0.4) K/mm3 Basophils # (Manual) (0.0-0.1) K/mm3 Metamyelocytes # K/mm3 Myelocytes # K/mm3 Promyelocytes # K/mm3 Blast Cells # K/mm3 WBC Morphology Hypersegmented Neuts Hyposegmented Neuts Hypogranular Neuts Smudge Cells Toxic Granulation Toxic Vacuolation Dohle Bodies Pelger-Huet Anomaly Lucretia Rods Platelet Estimate Clumped Platelets Plt Clumps, EDTA Large Platelets Giant Platelets Platelet Satelliting Plt Morphology Comment RBC Morphology Dimorphic RBCs Polychromasia Hypochromasia Poikilocytosis Anisocytosis Microcytosis Macrocytosis Spherocytes Pappenheimer Bodies Sickle Cells Target Cells Tear Drop Cells Ovalocytes Helmet Cells [place] Bodies Savage Rings Mone Cells Bite Cells Crenated Cell Elliptocytes Acanthocytes (Spur) Rouleaux Hemoglobin C Crystals Schistocytes Malaria parasites Lux Bodies Hem Pathologist Commnt PT (12.2-14.9) Sec. INR (0.87-1.13) APTT (24.2-36.6) Sec. ABG pH (7.320-7.450) POC ABG pCO2 (32.0-48.0) mmHg POC ABG pO2 (83-108) mmHg POC ABG HCO3 POC ABG Base Excess ABG Hemoglobin (12.0-17.5) ABG Sodium (136.0-145.0) mmol/L ABG Potassium (3.40-4.50) mmol/L ABG Chloride (98-107) mmol/L ABG Glucose (65-95) mg/dL FiO2 Sodium (137-145) mmol/L Potassium (3.6-5.0) mmol/L Chloride (98-107) mmol/L Carbon Dioxide (22-30) mmol/L Anion Gap mmol/L BUN (7-17) mg/dL Creatinine (0.6-1.2) mg/dL Estimated GFR ml/min BUN/Creatinine Ratio % Glucose (65-100) mg/dL POC Glucose (70-105) mg/dL Calcium (8.4-10.2) mg/dL Magnesium 1.30 L (1.7-2.3) mg/dL Total Bilirubin (0.1-1.2) mg/dL AST (5-40) units/L ALT (7-56) units/L Alkaline Phosphatase (35-129) units/L Ammonia (25-60) umol/L Troponin T (0.00-0.029) ng/mL Total Protein (6.3-8.2) g/dL Albumin (3.9-5) g/dL Albumin/Globulin Ratio % Triglycerides (2-149) mg/dL Cholesterol (50-199) mg/dL LDL Cholesterol Direct (50-130) mg/dL HDL Cholesterol (40-59) mg/dL Cholesterol/HDL Ratio % TSH (0.270-4.200) mlU/mL Arterial Blood Glucose (65-95) mg/dL Arterial Blood Ionized Calcium (4.6-5.3) mg/dL Valproic Acid 59.0 (50-100) ug/mL Plasma/Serum Alcohol (0-0.07) % Blood Type Antibody Screen Crossmatch 12/14/19 12/14/19 Range/Units 12:41 13:42 WBC (4.5-11.0) K/mm3 RBC (3.65-5.03) M/mm3 Hgb (10.1-14.3) gm/dl Hct (30.3-42.9) % MCV (79-97) fl MCH (28-32) pg MCHC (30-34) % RDW (13.2-15.2) % Plt Count (140-440) K/mm3 Add Manual Diff Total Counted Seg Neuts % (Manual) (40.0-70.0) % Band Neutrophils % % Lymphocytes % (Manual) (13.4-35.0) % Reactive Lymphs % (Man) % Monocytes % (Manual) (0.0-7.3) % Eosinophils % (Manual) (0.0-4.3) % Basophils % (Manual) (0.0-1.8) % Metamyelocytes % % Myelocytes % % Promyelocytes % % Blast Cells % % Nucleated RBC % (0.0-0.9) % Seg Neutrophils # Man (1.8-7.7) K/mm3 Band Neutrophils # K/mm3 Lymphocytes # (Manual) (1.2-5.4) K/mm3 Abs React Lymphs (Man) K/mm3 Monocytes # (Manual) (0.0-0.8) K/mm3 Eosinophils # (Manual) (0.0-0.4) K/mm3 Basophils # (Manual) (0.0-0.1) K/mm3 Metamyelocytes # K/mm3 Myelocytes # K/mm3 Promyelocytes # K/mm3 Blast Cells # K/mm3 WBC Morphology Hypersegmented Neuts Hyposegmented Neuts Hypogranular Neuts Smudge Cells Toxic Granulation Toxic Vacuolation Dohle Bodies Pelger-Huet Anomaly Lucretia Rods Platelet Estimate Clumped Platelets Plt Clumps, EDTA Large Platelets Giant Platelets Platelet Satelliting Plt Morphology Comment RBC Morphology Dimorphic RBCs Polychromasia Hypochromasia Poikilocytosis Anisocytosis Microcytosis Macrocytosis Spherocytes Pappenheimer Bodies Sickle Cells Target Cells Tear Drop Cells Ovalocytes Helmet Cells [place] Bodies [place] Rings [place] Cells Bite Cells Crenated Cell Elliptocytes Acanthocytes (Spur) Rouleaux Hemoglobin C Crystals Schistocytes Malaria parasites Lux Bodies Hem Pathologist Commnt PT 50.7 H (12.2-14.9) Sec. INR 5.42 H* (0.87-1.13) APTT 48.7 H (24.2-36.6) Sec. ABG pH 7.213 L (7.320-7.450) POC ABG pCO2 58.2 H (32.0-48.0) mmHg POC ABG pO2 105.4 (83-108) mmHg POC ABG HCO3 22.9 POC ABG Base Excess -5.3 ABG Hemoglobin 11.0 L (12.0-17.5) ABG Sodium 133.9 L (136.0-145.0) mmol/L ABG Potassium 2.9 L (3.40-4.50) mmol/L ABG Chloride 103.0 (98-107) mmol/L ABG Glucose 118 H (65-95) mg/dL FiO2 36.0 Sodium (137-145) mmol/L Potassium (3.6-5.0) mmol/L Chloride (98-107) mmol/L Carbon Dioxide (22-30) mmol/L Anion Gap mmol/L BUN (7-17) mg/dL Creatinine (0.6-1.2) mg/dL Estimated GFR ml/min BUN/Creatinine Ratio % Glucose (65-100) mg/dL POC Glucose (70-105) mg/dL Calcium (8.4-10.2) mg/dL Magnesium (1.7-2.3) mg/dL Total Bilirubin (0.1-1.2) mg/dL AST (5-40) units/L ALT (7-56) units/L Alkaline Phosphatase (35-129) units/L Ammonia (25-60) umol/L Troponin T (0.00-0.029) ng/mL Total Protein (6.3-8.2) g/dL Albumin (3.9-5) g/dL Albumin/Globulin Ratio % Triglycerides (2-149) mg/dL Cholesterol (50-199) mg/dL LDL Cholesterol Direct (50-130) mg/dL HDL Cholesterol (40-59) mg/dL Cholesterol/HDL Ratio % TSH (0.270-4.200) mlU/mL Arterial Blood Glucose 118 H (65-95) mg/dL Arterial Blood Ionized Calcium 5.2 (4.6-5.3) mg/dL Valproic Acid (50-100) ug/mL Plasma/Serum Alcohol (0-0.07) % Blood Type Antibody Screen Crossmatch Reevaluation #2: 12/14/19 14:54 Vital Signs 12/14/19 12/14/19 12/14/19 11:18 11:30 11:50 Temperature 80.1 F L Pulse Rate 40 L Respiratory 16 16 Rate Blood Pressure 67/42 [Right] O2 Sat by Pulse 99 98 Oximetry 12/14/19 12/14/19 12/14/19 11:58 12:00 14:14 Temperature 80.1 F L Pulse Rate 58 L 61 Respiratory 16 16 Rate Blood Pressure 120/80 73/37 [Right] O2 Sat by Pulse 95 96 Oximetry - Consultations Consultation #1: 12/14/19 10:35 I spoke with the net mvc developer on-call, Dr. Graham, who looked at the EKG and did not feel that it was an ST elevation myocardial infarction. - ABG Interpretation Ph: [phone] PCO2: 58 PO2: 105 Bicarbonate: 22 Interpretation: respiratory acidosis - Central Line Placement Right Femoral Consent Obtained: emergent situation Time Out Performed: Yes Patient Placed on Monitor/Pulse Ox: Yes MD Prep: mask, gown, gloves Central Line Prep: Chlorhexidine scrub Local Anesthesia Used: Lidocaine 1% Amount of Anesthesia Used (mls): 3 Ultrasound Used for Placement: Yes Central Line Lumen Inserted: triple Bloods Obtained for Lab: Yes Central Line Position: good blood return, all ports aspirated, flus, sutured in place with nyl Dressing Applied: Tegaderm, sterile gauze/tape Patient Tolerated Procedure: well Complications: none ED Medical Decision Making - Lab Data Result diagrams: 12/14/19 12:15 12/14/19 10:50 - EKG Data -: EKG Interpreted by Me - EKG Data Interpretation: other (Atrial fibrillation, rate of 30 bpm, normal axis, wide QRS) - Radiology Data Radiology results: report reviewed CHEST 1 VIEW INDICATION / CLINICAL INFORMATION: Altered mental status. COMPARISON: 11/18/2019 FINDINGS: SUPPORT DEVICES: None. HEART / MEDIASTINUM: Stable. LUNGS / PLEURA: Interval development of central pulmonary vascular congestion and mild bilateral perihilar opacities. No pneumothorax. ADDITIONAL FINDINGS: No significant additional findings. IMPRESSION: 1. Findings consistent with congestive heart failure and mild bilateral pulmonary edema. CT BRAIN: 12/14/2019 INDICATION / CLINICAL INFORMATION: Altered mental status. COMPARISON: None available. FINDINGS: BRAIN/INTRACRANIAL STRUCTURES: Unenhanced CT images of the brain demonstrate no evidence of acute intracranial abnormality. Ventricles and sulci are prominent in size for a patient of this age, consistent with prominent diffuse cerebral atrophy. There is no evidence of acute ischemic injury, hemorrhage, or mass. There are no abnormal extra-axial fluid collections. EXTRACRANIAL STRUCTURES: Unremarkable. IMPRESSION: No acute abnormality. - Medical Decision Making This patient presents [facility] the emergency department [facility] with altered mental status. Upon arrival the patient is hypotensive with severe bradycardia. EKG did not show ST elevation [place] but did show severely widened QRS. Patient was seen by cardiology at bedside earlier in her ED course. The decision was made to give the patient dopamine to help with both the blood pressure and bradycardia. Central line was placed after initiation of the pressor. Chest x-ray does not show any pneumonia, pleural effusions, pneumothorax, or any other acute process. Patient had multiple abnormal labs. Her initial hemoglobin came back at 5.9. This was later repeated and found to be closer to 10. The patient has supratherapeutic INR secondary to Coumadin. She was found to have a potassium of 2 and a calcium of about 5, both of which were replaced. Chest x-ray showed some pulmonary vascular congestion and pleural effusions concerning for CHF. CT of the head did not show any bleed, shift, mass, ischemia, or any other acute process. Patient also presented hypothermic and was placed in a bear hugger. Patient will be admitted to the ICU and has been accepted for admission by the hospitalist, Dr. Epps. Critical Care Time: Yes Critical care time in (mins) excluding proc time.: 45 Critical care attestation.: If time is entered above; I have spent that time in minutes in the direct care of this critically ill patient, excluding procedure time. Critical care time was spent on this patient in doing her initial evaluation, multiple reevaluations, ordering and interpretation of labs and imaging, IV fl uid resuscitation and treatment with pressors for her hypotension, ordering of blood for transfusion, IV replacement of electrolytes. This does not include the time spent doing the central line procedure. Critical Care Time: 45 minutes ED Disposition Clinical Impression: Bradycardia with 31-40 beats per minute, Hypokalemia, Hypocalcemia, Acute encephalopathy, Supratherapeutic INR Hypotension Qualifiers: Hypotension type: unspecified hypotension type Qualified Code(s): I95.9 - Hypotension, unspecified Anemia Qualifiers: Anemia type: unspecified type Qualified Code(s): D64.9 - Anemia, unspecified Disposition: 09 OP ADMIT IP TO THIS HOSP Is pt being admited?: Yes Condition: Serious Time of Disposition: 15:08
[2019-12-14] MEDS: DOPamine/D5W 800 MG/250 ML 800 MG/250 ML BAG IV ONE (11:02)
[2019-12-14 11:04] LABS: Mean Corpuscular HGB Conc 33 % (30-34); Mean Corpuscular Volume 89 fl (79-97); Red Blood Count 1.97 M/mm3 (3.65-5.03)
--- NOTE | 2019-12-14 11:04 | XRay Report ---
CHEST 1 VIEW INDICATION / CLINICAL INFORMATION: Altered mental status. COMPARISON: 11/18/2019 FINDINGS: SUPPORT DEVICES: None. HEART / MEDIASTINUM: Stable. LUNGS / PLEURA: Interval development of central pulmonary vascular congestion and mild bilateral hira hilar opacities. No pneumothorax. ADDITIONAL FINDINGS: No significant additional findings. IMPRESSION: 1. Findings consistent with congestive heart failure and mild bilateral pulmonary edema. Signer Name: Luciano Kim MD Signed: 12/14/2019 10:59 AM Workstation Name: [id number]
[2019-12-14 11:07] LABS: Hematocrit 17.6 % (30.3-42.9); Hemoglobin 5.9 gm/dl (10.1-14.3); Platelet Count 73 K/mm3 (140-440); Red Cell Distribution Width 20.4 % (13.2-15.2)
[2019-12-14 11:23] LABS: INR 12.4 (0.87-1.13); Partial Thromboplastin Time 90.2 Sec. (24.2-36.6)
--- NOTE | 2019-12-14 11:29 | Consultation ---
History of Present Illness Consult date: 12/14/19 Requesting physician: VIJI SIEGEL History of present illness: The pt is a 64-year-old presently incarcerated female with a past medical history of PE diagnosed here 11/20/2019, reported CAD s/p PCI, lupus, HTN, DM, CKD, asthma. She is previously unknown to our practice. She has altered mental status and is nonverbal on evaluation and thus HPI is obtained per the chart. Pt presented to the ED via EMS from a local long term facility with the initial call for AMS. Following arrival to ED, pt found to be bradycardic, hypotensive and hypothermic. EKG and telemetry showed junctional rhythm v. ventricular escape rhythm, HR 30s, no ischemic changes but severely widened QRS. Dopamine gtt initiated with subsequent improvement of HR to 60s. Labwork significant for initial hemoglobin 5.9, later repeated and found to be closer to 10, thrombocytopenia. INR currently 5.42, potassium of 2 and a calcium of about 5, both of which were replaced. CXR showed some pulmonary vascular congestion and pleural effusions concerning for CHF. CT of the head NAF. Per pt's night guard at bedside, pt has chronic cognitive disability - she is mostly bedbound, mostly nonverbal and frequently incontinent at baseline. Of note, patient evaluated here on 11/18/2019 with c/o chest pain. Patient seen and evaluated in the ED. D-dimer was elevated, patient underwent CTA of the chest which revealed distal bilateral pulmonary emboli. Patient treated with reinitiation of therapeutic anticoagulation. Pt discharged with instructions to f/u with hematology and PCP. Past History Past Medical History: other (as per HPI) Medications and Allergies Allergies Allergy/AdvReac Type Severity Reaction Status Date / Time aspirin Allergy ABD PAIN Verified 01/24/14 14:11 ibuprofen Allergy Unknown Verified 09/04/19 06:25 latex Allergy Rash Verified 01/24/14 14:11 lithium Allergy Hives Verified 01/24/14 14:11 peanut Allergy Unknown Verified 09/04/19 06:25 Penicillins Allergy Itching Verified 01/24/14 14:11 quetiapine [From Seroquel] Allergy Unknown Verified 09/04/19 06:25 shellfish derived Allergy Vomiting Verified 09/04/19 06:25 tomato Allergy Unknown Verified 09/04/19 06:25 zolpidem [From Ambien] Allergy Unknown Verified 09/04/19 06:25 Home Medications Medication Instructions Recorded Confirmed Last Taken Type carvediloL [Coreg] 1 tab PO BID 01/28/14 12/14/19 01/29/14 History metFORMIN [Glucophage] 1 tab PO BID 01/28/14 12/14/19 01/29/14 History Acetaminophen [Acetaminophen TAB] 650 mg PO Q4H PRN tablet 09/06/19 12/14/19 Unknown Rx AtorvaSTATin 80 mg PO HS 09/09/19 12/14/19 Unknown History Escitalopram 15 mg PO DAILY 09/09/19 12/14/19 Unknown History Divalproex [Arun Chavez] 500 mg PO BID #60 tablet 09/10/19 12/14/19 Unknown Rx Benztropine Mesylate 1 mg 12/14/19 Unknown History Insulin Regular, Human [Novolin R] 1 units IJ 12/14/19 Unknown History Warfarin 3 mg 12/14/19 Unknown History risperiDONE [RisperDAL] 1 mg PO 12/14/19 Unknown History traZODone 150 mg 12/14/19 Unknown History Active Meds: Active Medications Dopamine HCl/Dextrose (Intropin Drip 800 Mg/D5w 250 Ml) 800 mg in 250 mls @ 3.912 mls/hr IV TITR ONE; Protocol Stop: 12/17/19 02:53 Review of Systems ROS unobtainable: due to mental status Physical Examination General appearance: other (withdrawn, confused, nonverbal) HEENT: Positive: PERRL Neck: Positive: neck supple, trachea midline Cardiac: Positive: S1/S2, Bradycardia Lungs: Positive: Decreased Breath Sounds Neuro: Positive: Other (withdrawn, nonverbal) Abdomen: Negative: Tender Skin: Negative: Rash Extremities: Absent: edema Results 12/14/19 12:15 12/14/19 10:50 Coagulation 12/14/19 Range/Units 10:50 PT 97.2 H (12.2-14.9) Sec. INR 12.40 H* (0.87-1.13) APTT 90.2 H* (24.2-36.6) Sec. CBC 12/14/19 Range/Units 10:50 WBC 1.7 L* (4.5-11.0) K/mm3 RBC 1.97 L (3.65-5.03) M/mm3 Hgb 5.9 L* (10.1-14.3) gm/dl Hct 17.6 L* (30.3-42.9) % Plt Count 73 L (140-440) K/mm3 - Imaging and Cardiology Echo: pending EKG: report reviewed, image reviewed EKG interpretations - Telemetry EKG Rhythm: Junctional - EKG Supraventricular dysrhythmia: junctional rhythm Assessment and Plan Pt reevaluated after initiation of dopamine gtt - now in accelerated junctional rhythm and/or NSR, HR 60-70s. Home medication list obtained from [facility] - pt was taking Warfarin 1.5mg daily, no AV minh blocking agents listed. Cont present cardiac management. Pt is pending PRBC tx per primary. Obtain echo and thyroid profile. Cont close observation on telemetry. Will follow. The patient has been seen in conjunction with Dr. Graham who agrees with the assessment and plan of care. - Patient Problems (1) Bradycardia with 31-40 beats per minute Current Visit: Yes Status: Acute Plan to address problem: junctional v. ventricular escape (2) Altered mental status Current Visit: Yes Status: Acute (3) Hypokalemia Current Visit: Yes Status: Acute (4) Hypocalcemia Current Visit: Yes Status: Acute (5) Hypotension Current Visit: Yes Status: Acute Qualifiers: Hypotension type: unspecified hypotension type Qualified Code(s): I95.9 - Hypotension, unspecified (6) Hypothermia Current Visit: Yes Status: Acute (7) Coagulopathy Current Visit: Yes Status: Acute (8) Anemia Current Visit: Yes Status: Acute Qualifiers: Anemia type: unspecified type Qualified Code(s): D64.9 - Anemia, unspecified (9) Thrombocytopenia Current Visit: Yes Status: Acute (10) History of pulmonary embolism Current Visit: Yes Status: Chronic (11) Diabetes Current Visit: Yes Status: Chronic (12) Lupus Current Visit: Yes Status: Chronic (13) CKD (chronic kidney disease) Current Visit: Yes Status: Chronic
[2019-12-14 11:34] LABS: Alanine Aminotransferase 9 units/L (7-56); Albumin 1.4 g/dL (3.9-5); BUN/Creatinine Ratio 17; Blood Urea Nitrogen 17 mg/dL (7-17); Hemolysis Index 35
[2019-12-14 11:52] LABS: Anisocytosis 1+; Basophils % (Manual) 0 % (0.0-1.8); Burr Cells 1+; Platelet Estimate Consistent w Auto; Poikilocytosis 1+; Target Cells Rare; Total Cells Counted 100
[2019-12-14] MEDS ORDERED: CALCIUM GLUCONATE 2,000 MG in SODIUM CHLORIDE 0.9% 100 ML IV ONE (12:00)
[2019-12-14 12:56] LABS: Hematocrit 29.8 % (30.3-42.9); Hemoglobin 10.1 gm/dl (10.1-14.3); Mean Corpuscular HGB Conc 34 % (30-34); Mean Corpuscular Volume 89 fl (79-97); Platelet Count 130 K/mm3 (140-440); Red Blood Count 3.36 M/mm3 (3.65-5.03)
[2019-12-14 13:03] LABS: Red Cell Distribution Width 20.5 % (13.2-15.2)
[2019-12-14] MEDS: POTASSIUM CHLORIDE 10 MEQ 10 MEQ/100 ML BAG IV SCH ×4 (13:06→19:34)
[2019-12-14] MEDS ORDERED: MAGNESIUM SULFATE 2 GM/50 ML BAG IV ONE ×2 (13:13→16:54)
--- NOTE | 2019-12-14 13:50 | Cat Scan Report ---
CT BRAIN: 12/14/2019 INDICATION / CLINICAL INFORMATION: Altered mental status. COMPARISON: None available. FINDINGS: BRAIN/INTRACRANIAL STRUCTURES: Unenhanced CT images of the brain demonstrate no evidence of acute int racranial abnormality. Ventricles and sulci are prominent in size for a patient of this age, consistent with prominent diffu se cerebral atrophy. There is no evidence of acute ischemic injury, hemorrhage, or mass. There are no abnormal extra-axial fluid collections. EXTRACRANIAL STRUCTURES: Unremarkable. IMPRESSION: No acute abnormality. All CT scans at this location are performed using dose reduction to ALARA by means of automated expos ure control. Signer Name: Braeden Thompson MD Signed: 12/14/2019 1:45 PM Workstation Name: [id number]
[2019-12-14 13:51] LABS: Chol/HDL Ratio 1.91 %
[2019-12-14 14:04] LABS: Partial Thromboplastin Time 48.7 Sec. (24.2-36.6)
[2019-12-14 14:15] LABS: INR 5.42 (0.87-1.13)
--- NOTE | 2019-12-14 15:22 | History and Physical Report ---
History of Present Illness Chief complaint: She is confused History of present illness: 64-year-old female with hypertension, MA, CHF, diabetes, chronic kidney disease, coronary artery disease status post stent placement, chronic obstructive pulmonary disease, systemic lupus erythematosus, bipolar disorder, pulmonary embolism currently on therapeutic anticoagulation with Coumadin presents to ED for evaluation. Patient is confused and lethargic and unable to provide history. Patient history taken from EMS staff, ED staff, as well as corrections staff. Patient is currently incarcerated. As per staff, the patient was found by corrections officers to be confused. EMS was notified and upon arrival the patient was found to be in distress and subsequently transported to [facility] for further care and evaluation. Patient seen and evaluated in the emergency department. All lab and imaging studies reviewed. Patient found to have symptoms consistent with congestive heart failure, cardiogenic shock, metabolic encephalopathy, as well as supratherapeutic INR. Patient admitted to ICU and initiated on IV pressor support. Cardiology team consulted in ED. No further history is obtainable. No prior admission for review. No medication listed at time of admission for reconciliation. Patient is confused and lethargic at the time of my evaluation and is unable to provide history but patient has a positive gag reflex and is able to protect her airway without difficulty. Advanced care planning conducted in ED. Past History Past Medical History: acute MA, heart failure, pulmonary embolism, other (See HPI) Past Surgical History: appendectomy Social history: . denies: smoking, alcohol abuse, prescription drug abuse Family history: hypertension Medications and Allergies Allergies Allergy/AdvReac Type Severity Reaction Status Date / Time aspirin Allergy ABD PAIN Verified 01/24/14 14:11 ibuprofen Allergy Unknown Verified 09/04/19 06:25 latex Allergy Rash Verified 01/24/14 14:11 lithium Allergy Hives Verified 01/24/14 14:11 peanut Allergy Unknown Verified 09/04/19 06:25 Penicillins Allergy Itching Verified 01/24/14 14:11 quetiapine [From Seroquel] Allergy Unknown Verified 09/04/19 06:25 shellfish derived Allergy Vomiting Verified 09/04/19 06:25 tomato Allergy Unknown Verified 09/04/19 06:25 zolpidem [From Ambien] Allergy Unknown Verified 09/04/19 06:25 Home Medications Medication Instructions Recorded Confirmed Last Taken Type carvediloL [Coreg] 1 tab PO BID 01/28/14 12/14/19 01/29/14 History metFORMIN [Glucophage] 1 tab PO BID 01/28/14 12/14/19 01/29/14 History Acetaminophen [Acetaminophen TAB] 650 mg PO Q4H PRN tablet 09/06/19 12/14/19 Unknown Rx AtorvaSTATin 80 mg PO HS 09/09/19 12/14/19 Unknown History Escitalopram 15 mg PO DAILY 09/09/19 12/14/[address] [Depjose Dr] 500 mg PO BID #60 tablet 09/10/19 12/14/19 Unknown Rx Benztropine Mesylate 1 mg 12/14/19 Unknown History Insulin Regular, Human [Novolin R] 1 units IJ 12/14/19 Unknown History Warfarin 3 mg 12/14/19 Unknown History risperiDONE [RisperDAL] 1 mg PO 12/14/19 Unknown History traZODone 150 mg 12/14/19 Unknown History Active Meds: Active Medications Dopamine HCl/Dextrose (Intropin Drip 800 Mg/D5w 250 Ml) 800 mg in 250 mls @ 3.912 mls/hr IV TITR ONE; Protocol Stop: 12/17/19 02:53 Last Titration: 12/14/19 12:57 Dose: 14 mcg/kg/min, 27.386 mls/hr Documented by: Potassium Chloride (Kcl 10meq/100ml) 10 meq in 100 mls @ 100 mls/hr IV Q1H BRANDEN Stop: 12/14/19 15:59 Last Admin: 12/14/19 13:06 Dose: 100 mls/hr Documented by: Review of Systems ROS unobtainable: due to mental status Exam - Constitutional Vitals: Temp Pulse Resp BP Pulse Ox 80.1 F L 61 16 73/37 96 12/14/19 12:00 12/14/19 14:14 12/14/19 14:14 12/14/19 14:14 12/14/19 14:14 General appearance: Present: mild distress - EENT Eyes: Present: PERRL ENT: clear oral mucosa, hearing decreased - Neck Neck: Present: supple, normal ROM - Respiratory Respiratory effort: normal Respiratory: bilateral: CTA - Cardiovascular Heart Sounds: Present: S1 & S2. Absent: rub, click - Extremities Extremities: pulses symmetrical, No edema Extremity abnormal: pulses diminished Peripheral Pulses: abnormal - Abdominal General gastrointestinal: Present: soft, non-tender, non-distended, normal bowel sounds Female genitourinary: Present: normal - Integumentary Integumentary: Present: clear, warm, dry - Musculoskeletal Musculoskeletal: gait normal, strength equal bilaterally - Psychiatric Psychiatric: no appropriate mood/affect, no intact judgment & insight, no memory intact - Neurologic Neurologic: CNII-XII intact, moves all extremities, no gait normal HEART Score - HEART Score Troponin: Troponin T 0.033 ng/mL (0.00-0.029) H D 12/14/19 12:15 Results - Labs CBC & Chem 7: 12/14/19 12:15 12/14/19 10:50 Labs: Abnormal lab results 12/14/19 12/14/19 12/14/19 Range/Units 10:37 10:50 10:50 WBC 1.7 L* (4.5-11.0) K/mm3 RBC 1.97 L (3.65-5.03) M/mm3 Hgb 5.9 L* (10.1-14.3) gm/dl Hct 17.6 L* (30.3-42.9) % RDW 20.4 H (13.2-15.2) % Plt Count 73 L (140-440) K/mm3 Seg Neuts % (Manual) 85.0 H (40.0-70.0) % Lymphocytes % (Manual) 13.0 L (13.4-35.0) % Nucleated RBC % 1.0 H (0.0-0.9) % Seg Neutrophils # Man 1.4 L (1.8-7.7) K/mm3 Lymphocytes # (Manual) 0.2 L (1.2-5.4) K/mm3 PT (12.2-14.9) Sec. INR (0.87-1.13) APTT (24.2-36.6) Sec. ABG pH (7.320-7.450) POC ABG pCO2 (32.0-48.0) mmHg ABG Hemoglobin (12.0-17.5) ABG Sodium (136.0-145.0) mmol/L ABG Potassium (3.40-4.50) mmol/L ABG Glucose (65-95) mg/dL Potassium 2.0 L* (3.6-5.0) mmol/L Chloride 116.5 H (98-107) mmol/L Carbon Dioxide 16 L (22-30) mmol/L POC Glucose 117 H (70-105) mg/dL Calcium 5.0 L* (8.4-10.2) mg/dL Magnesium (1.7-2.3) mg/dL Alkaline Phosphatase 17 L (35-129) units/L Ammonia (25-60) umol/L Troponin T (0.00-0.029) ng/mL Total Protein 2.6 L (6.3-8.2) g/dL Albumin 1.4 L (3.9-5) g/dL LDL Cholesterol Direct (50-130) mg/dL HDL Cholesterol (40-59) mg/dL Arterial Blood Glucose (65-95) mg/dL Crossmatch 12/14/19 12/14/19 12/14/19 Range/Units 10:50 10:50 12:15 WBC (4.5-11.0) K/mm3 RBC (3.65-5.03) M/mm3 Hgb (10.1-14.3) gm/dl Hct (30.3-42.9) % RDW (13.2-15.2) % Plt Count (140-440) K/mm3 Seg Neuts % (Manual) (40.0-70.0) % Lymphocytes % (Manual) (13.4-35.0) % Nucleated RBC % (0.0-0.9) % Seg Neutrophils # Man (1.8-7.7) K/mm3 Lymphocytes # (Manual) (1.2-5.4) K/mm3 PT 97.2 H (12.2-14.9) Sec. INR 12.40 H* (0.87-1.13) APTT 90.2 H* (24.2-36.6) Sec. ABG pH (7.320-7.450) POC ABG pCO2 (32.0-48.0) mmHg ABG Hemoglobin (12.0-17.5) ABG Sodium (136.0-145.0) mmol/L ABG Potassium (3.40-4.50) mmol/L ABG Glucose (65-95) mg/dL Potassium (3.6-5.0) mmol/L Chloride (98-107) mmol/L Carbon Dioxide (22-30) mmol/L POC Glucose (70-105) mg/dL Calcium (8.4-10.2) mg/dL Magnesium (1.7-2.3) mg/dL Alkaline Phosphatase (35-129) units/L Ammonia 15.0 L (25-60) umol/L Troponin T 0.033 H D (0.00-0.029) ng/mL Total Protein (6.3-8.2) g/dL Albumin (3.9-5) g/dL LDL Cholesterol Direct 15 L (50-130) mg/dL HDL Cholesterol 37 L (40-59) mg/dL Arterial Blood Glucose (65-95) mg/dL Crossmatch 12/14/19 12/14/19 12/14/19 Range/Units 12:15 12:15 12:15 WBC 3.8 L (4.5-11.0) K/mm3 RBC 3.36 L (3.65-5.03) M/mm3 Hgb (10.1-14.3) gm/dl Hct 29.8 L D (30.3-42.9) % RDW 20.5 H (13.2-15.2) % Plt Count 130 L (140-440) K/mm3 Seg Neuts % (Manual) (40.0-70.0) % Lymphocytes % (Manual) (13.4-35.0) % Nucleated RBC % (0.0-0.9) % Seg Neutrophils # Man (1.8-7.7) K/mm3 Lymphocytes # (Manual) (1.2-5.4) K/mm3 PT (12.2-14.9) Sec. INR (0.87-1.13) APTT (24.2-36.6) Sec. ABG pH (7.320-7.450) POC ABG pCO2 (32.0-48.0) mmHg ABG Hemoglobin (12.0-17.5) ABG Sodium (136.0-145.0) mmol/L ABG Potassium (3.40-4.50) mmol/L ABG Glucose (65-95) mg/dL Potassium (3.6-5.0) mmol/L Chloride (98-107) mmol/L Carbon Dioxide (22-30) mmol/L POC Glucose (70-105) mg/dL Calcium (8.4-10.2) mg/dL Magnesium 1.30 L (1.7-2.3) mg/dL Alkaline Phosphatase (35-129) units/L Ammonia (25-60) umol/L Troponin T (0.00-0.029) ng/mL Total Protein (6.3-8.2) g/dL Albumin (3.9-5) g/dL LDL Cholesterol Direct (50-130) mg/dL HDL Cholesterol (40-59) mg/dL Arterial Blood Glucose (65-95) mg/dL Crossmatch See Detail 12/14/19 12/14/19 Range/Units 12:41 13:42 WBC (4.5-11.0) K/mm3 RBC (3.65-5.03) M/mm3 Hgb (10.1-14.3) gm/dl Hct (30.3-42.9) % RDW (13.2-15.2) % Plt Count (140-440) K/mm3 Seg Neuts % (Manual) (40.0-70.0) % Lymphocytes % (Manual) (13.4-35.0) % Nucleated RBC % (0.0-0.9) % Seg Neutrophils # Man (1.8-7.7) K/mm3 Lymphocytes # (Manual) (1.2-5.4) K/mm3 PT 50.7 H (12.2-14.9) Sec. INR 5.42 H* (0.87-1.13) APTT 48.7 H (24.2-36.6) Sec. ABG pH 7.213 L (7.320-7.450) POC ABG pCO2 58.2 H (32.0-48.0) mmHg ABG Hemoglobin 11.0 L (12.0-17.5) ABG Sodium 133.9 L (136.0-145.0) mmol/L ABG Potassium 2.9 L (3.40-4.50) mmol/L ABG Glucose 118 H (65-95) mg/dL Potassium (3.6-5.0) mmol/L Chloride (98-107) mmol/L Carbon Dioxide (22-30) mmol/L POC Glucose (70-105) mg/dL Calcium (8.4-10.2) mg/dL Magnesium (1.7-2.3) mg/dL Alkaline Phosphatase (35-129) units/L Ammonia (25-60) umol/L Troponin T (0.00-0.029) ng/mL Total Protein (6.3-8.2) g/dL Albumin (3.9-5) g/dL LDL Cholesterol Direct (50-130) mg/dL HDL Cholesterol (40-59) mg/dL Arterial Blood Glucose 118 H (65-95) mg/dL Crossmatch Assessment and Plan - Patient Problems (1) Cardiogenic shock Current Visit: Yes Status: Acute Plan to address problem: Cardiology team consulted in ED, patient initiated on IV pressor support, patient admitted to ICU, serial EKG, supportive care, telemetry monitoring. Further care as per cardiology team. (2) Diastolic CHF Current Visit: Yes Status: Acute Qualifiers: Heart failure chronicity: acute Qualified Code(s): I50.31 - Acute diastolic (congestive) heart failure Plan to address problem: Strict I's/O, monitor urine output every shift, afterload reduction, ech ocardiogram ordered and is pending at time of admission, BNP, thyroid panel, (3) Supratherapeutic INR Current Visit: Yes Status: Acute Plan to address problem: Hold anticoagulation at this time, repeat INR in a.m., supportive care. No active bleeding. (4) Metabolic encephalopathy Current Visit: Yes Status: Acute Plan to address problem: CBC, CMP, CT scan head without contrast, neuro check, seizure precautions, aspiration precautions (5) Advance care planning Current Visit: Yes Status: Acute Plan to address problem: Disease education conducted, patient is full code, prognosis discussed, +30 minutes. (6) DVT prophylaxis Current Visit: Yes Status: Acute Plan to address problem: SCD to bilateral lower extremities while in bed, hold anticoagulation for now due to supratherapeutic INR.
[2019-12-14] MEDS ORDERED: ALBUTEROL 2.5 MG/3 ML NEBU IH PRN (15:42)
[2019-12-14] MEDS ORDERED: ACETAMINOPHEN 325 MG TAB PO PRN (16:52)
[2019-12-14] MEDS ORDERED: POTASSIUM CHLORIDE 10 MEQ 10 MEQ/100 ML BAG IV ONE ×3 (16:54→19:32)
[2019-12-14 16:55] LABS: Bilirubin,Urine NEG (Negative); Blood,Urine NEG (Negative); Color,Urine Yellow (Yellow); Hyaline Casts,Urine 5 /LPF; Mucus,Urine FEW /HPF; Urobilinogen,Urine < 2.0 mg/dL (<2.0)
[2019-12-14 17:05] LABS: Amphetamine Screen,Urine PRESUMPTIVE POSITIVE; Benzodiazepines Screen,Urine PRESUMPTIVE NEGATIVE; Cannabinoid Screen,Urine PRESUMPTIVE NEGATIVE; Cocaine Screen,Urine PRESUMPTIVE NEGATIVE; Methadone Screen,Urine PRESUMPTIVE NEGATIVE; Opiate Screen,Urine PRESUMPTIVE NEGATIVE
[2019-12-14] MEDS ORDERED: SODIUM CHLORIDE 0.9% 1000 ML 1,000 ML IV ONE (17:34)
[2019-12-14] MEDS ORDERED: NORepinephrine/NS 4 MG-250 ML 4 MG/250 ML BAG IV ONE (21:10)
[2019-12-14] MEDS: NORepinephrine/NS 4 MG-250 ML 4 MG/250 ML BAG IV SCH (21:22)
[2019-12-14] MEDS ORDERED: NON-FORMULARY EACH (Atorvastatin 80 MG) PO SCH (22:00)
[2019-12-14] MEDS ORDERED: DIVALPROEX DR 500 MG TAB PO SCH (22:00)
[2019-12-14] MEDS ORDERED: NORepinephrine/NS 4 MG-250 ML 4 MG/250 ML BAG IV SCH (22:00)
[2019-12-15] MEDS ORDERED: ETOMIDATE 20 MG/10 ML INJ IV ONE ×2 (00:19→00:40)
[2019-12-15] MEDS ORDERED: ROCURONIUM 50 MG/5 ML INJ IV ONE ×2 (00:20→00:40)
[2019-12-15] MEDS ORDERED: SODIUM CHLORIDE 0.9% 1000 ML 1,000 ML ONE (00:31)
[2019-12-15] MEDS ORDERED: SODIUM CHLORIDE 0.9% 1000 ML 1,000 ML IV ONE (00:40)
--- NOTE | 2019-12-15 00:48 | Procedure Note ---
Date of procedure: 12/15/19 Pre-op diagnosis: Hypoxia and respiratory failure Post-op diagnosis: same Procedure: Patient is a 4-year-old female that is already admitted to our hospitalist service. Patient is in ICU holding the ER. The nurse is asked me to assist the patient due to worsening hypoxia. Patient is 86% on a nonrebreather. Patient increased work to breathe. Patient did not meet criteria for BiPAP. Patient will require intubation. I discussed this with the hospitalist and the hospitalist, Dr Doss, is asked that I intubate the patient. See procedure note below. Intubation note: Timeout was done. Emergent consent. RSI was used with 20 mg of etomidate and 50 mg of rocuronium. After proper sedation was achieved, a fiberoptic scope was used intubation. A 7.5 tube was placed at 22 at the lip. I visualized the tube passing through the cords, equal breath sounds, condensation on the tube, no epigastric sounds noted. Capnography was used and had good color change. A chest x-ray ordered. Care transferred back to the primary team. I discussed the intubation with the hospitalist, Dr. Doss. Estimated blood loss: none Pathology: none Condition: critical Disposition: ICU
[2019-12-15 01:45] LABS: ABG Base Excess -7.6 mmol/L (-2.0-3.0); ABG HCO3 17.6 mmol/L (20.0-26.0); ABG Methemoglobin 0.7 % (0.0-1.5); ABG Oxygen Saturation 99.3 % (95.0-99.0); ABG PCO2 34.8 mm Hg; ABG PH 7.322 pH Units (7.350-7.450); ABG PO2 232.6 mm Hg (80.0-90.0)
--- NOTE | 2019-12-15 01:55 | XRay Report ---
CHEST 1 VIEW INDICATION / CLINICAL INFORMATION: Dyspnea IMPRESSION: Endotracheal tube terminates at the level the clavicles about 4 cm above the sandor. Wors ening bilateral airspace disease since yesterday's exam. Signer Name: Chris Wilkinson MD Signed: 12/15/2019 1:50 AM Workstation Name: [id number]
[2019-12-15 04:40] LABS: ABG Base Excess -5.8 mmol/L (-2.0-3.0); ABG HCO3 17.8 mmol/L (20.0-26.0); ABG Methemoglobin 0.7 % (0.0-1.5); ABG Oxygen Saturation 96.9 % (95.0-99.0); ABG PCO2 29.8 mm Hg; ABG PH 7.393 pH Units (7.350-7.450); ABG PO2 84.9 mm Hg (80.0-90.0)
[2019-12-15] MEDS ORDERED: NORepinephrine/NS 4 MG-250 ML 4 MG/250 ML BAG IV ONE ×4 (05:00→20:50)
[2019-12-15 05:17] LABS: Hematocrit 41.4 % (30.3-42.9); Mean Corpuscular HGB Conc 34 % (30-34); Mean Corpuscular Volume 89 fl (79-97); Platelet Count 218 K/mm3 (140-440); Red Blood Count 4.67 M/mm3 (3.65-5.03); Red Cell Distribution Width 19.9 % (13.2-15.2)
[2019-12-15 05:24] LABS: Albumin 2.9 g/dL (3.9-5); Calcium 9.6 mg/dL (8.4-10.2)
[2019-12-15] MEDS: NORepinephrine/NS 4 MG-250 ML 4 MG/250 ML BAG IV SCH ×5 (05:30→20:45)
[2019-12-15 05:34] LABS: INR 6.42 (0.87-1.13)
[2019-12-15] MEDS ORDERED: DOPamine/D5W 800 MG/250 ML 800 MG/250 ML BAG IV ONE ×2 (06:36→19:13)
[2019-12-15] MEDS: DOPamine/D5W 800 MG/250 ML 800 MG/250 ML BAG IV ONE ×3 (07:16→19:48)
[2019-12-15] MEDS ORDERED: MINERAL OIL/PETROLATUM, WHITE OPHTH OINT 3.5 GM OU PRN (08:10)
[2019-12-15] MEDS ORDERED: LIP THERAPY VASELINE TP PRN (08:10)
[2019-12-15] MEDS ORDERED: PHYTONADIONE(ADULT ONLY) 10 MG in SODIUM CHLORIDE 0.9% 50 ML IV ONE (09:00)
--- NOTE | 2019-12-15 09:06 | XRay Report ---
CHEST 1 VIEW INDICATION / CLINICAL INFORMATION: ETT placement. COMPARISON: 12/15/2019 at 12:44 AM FINDINGS: SUPPORT DEVICES: Endotracheal tube tip is approximately 6 cm above the sandor. HEART / MEDIASTINUM: Stable. LUNGS / PLEURA: Left lung is clear. Rotated projection obscures right lung which demonstrates low blas g volumes and at least mild pulmonary airspace disease. No pneumothorax. ADDITIONAL FINDINGS: No significant additional findings. IMPRESSION: 1. Satisfactory appearance of the endotracheal tube. 2. Right-sided pulmonary airspace disease, poorly visualized given rotated projection. Signer Name: Sorin Traore MD Signed: 12/15/2019 9:01 AM Workstation Name: [id number]
[2019-12-15] MEDS ORDERED: ESCITALOPRAM PO SCH (10:00)
[2019-12-15] MEDS ORDERED: ESCITALOPRAM 10 MG TAB PO SCH (10:00)
[2019-12-15] MEDS ORDERED: PANTOPRAZOLE 40 MG INJ IV SCH (10:00)
[2019-12-15] MEDS ORDERED: PANTOPRAZOLE 40 MG INJ IV ONE (10:05)
[2019-12-15 10:22] LABS: C-Reactive Protein 13.4 mg/dL (0.00-1.30)
--- NOTE | 2019-12-15 10:34 | Progress Note ---
Assessment and Plan pt is maintaining sinus rhythm with low-dose dopamine and is on pressors Levophed. Has normal LV function echocardiogram. Discussed with the nurse initiate NG tube with tube feedings. Unclear etiology of's supratherapeutic INR. Patient is being sedated. - Patient Problems (1) Acute encephalopathy Current Visit: Yes Status: Acute (2) Anemia Current Visit: Yes Status: Acute Qualifiers: Anemia type: unspecified type Qualified Code(s): D64.9 - Anemia, unspecified (3) Bradycardia with 31-40 beats per minute Current Visit: Yes Status: Acute (4) Hypocalcemia Current Visit: Yes Status: Acute (5) Hypokalemia Current Visit: Yes Status: Acute (6) Hypotension Current Visit: Yes Status: Acute Qualifiers: Hypotension type: unspecified hypotension type Qualified Code(s): I95.9 - Hypotension, unspecified (7) Hypothermia Current Visit: Yes Status: Acute (8) Junctional bradycardia Current Visit: Yes Status: Acute (9) Supratherapeutic INR Current Visit: Yes Status: Acute (10) CKD (chronic kidney disease) Current Visit: Yes Status: Chronic (11) History of pulmonary embolism Current Visit: Yes Status: Chronic (12) NSTEMI (non-ST elevated myocardial infarction) Current Visit: Yes Status: Acute Plan to address problem: type 2 (13) Acute respiratory failure requiring reintubation Current Visit: Yes Status: Acute Subjective Date of service: 12/15/19 Principal diagnosis: junctional rtym Interval history: pt on vent sedated Objective Vital Signs Temp Pulse Resp BP BP Pulse Ox 12/15/19 09:31 99 H 17 92/54 91 12/15/19 09:00 99 H 19 122/74 96 12/15/19 08:45 99 H 17 106/72 94 12/15/19 08:31 100 H 20 106/72 94 12/15/19 08:15 99 H 14 122/75 96 12/15/19 08:00 99 H 17 122/75 94 12/15/19 07:30 98 H 17 112/86 97 12/15/19 07:15 99 H 18 77/58 96 12/15/19 07:10 98.8 F 12/15/19 05:15 98 H 23 150/100 98 12/15/19 05:01 91 H 13 62/36 96 12/15/19 04:45 99 H 15 107/63 97 12/15/19 04:33 100 H 119/97 98 12/15/19 04:31 99 H 20 119/97 99 12/15/19 04:15 98 H 11 L 113/64 98 12/15/19 04:01 98 H 14 107/63 98 12/15/19 03:15 96 H 14 134/56 97 12/15/19 03:01 95 H 19 178/105 97 12/15/19 02:45 93 H 21 119/89 96 12/15/19 02:31 94 H 16 119/89 96 12/15/19 02:15 92 H 24 135/70 96 12/15/19 02:00 89 24 135/70 100 12/15/19 01:54 86 109/48 100 12/15/19 01:45 89 24 129/75 100 12/15/19 01:30 85 24 138/72 100 12/15/19 01:15 84 24 127/68 100 12/15/19 01:00 85 24 123/66 100 12/15/19 00:45 95 H 10 L 109/48 100 12/15/19 00:31 94 H 18 73/39 86 12/15/19 00:15 93 H 15 140/95 89 12/15/19 00:01 94 H 15 140/95 12/14/19 23:31 94 H 37 H 115/51 85 12/14/19 23:20 97.5 F L 87 24 184/109 97 12/14/19 23:15 87 22 184/109 94 12/14/19 23:01 101 H 14 184/109 89 12/14/19 22:45 94 H 22 87/49 90 12/14/19 22:31 92 H 17 110/81 90 12/14/19 22:15 92 H 13 132/99 91 12/14/19 22:01 90 15 132/99 91 12/14/19 21:50 97.4 F L 92 H 20 131/109 95 12/14/19 21:45 92 H 16 184/155 96 12/14/19 21:31 92 H 21 184/155 97 12/14/19 21:15 99 H 17 87/41 98 12/14/19 21:01 98 H 18 87/41 97 12/14/19 20:45 98 H 18 92/47 97 12/14/19 20:33 94.1 F L 97 H 13 140/109 96 12/14/19 20:31 98 H 13 92/65 95 12/14/19 20:18 93.5 F L 99 H 20 92/65 99 12/14/19 20:15 98 H 22 92/65 94 12/14/19 20:01 96 H 14 93/61 96 12/14/19 20:00 97.8 F 12/14/19 19:15 101 H 19 93 12/14/19 19:01 100 H 16 156/117 92 12/14/19 18:45 98 H 16 122/53 95 12/14/19 18:31 87 16 122/53 92 12/14/19 18:15 92 H 15 144/118 95 12/14/19 18:01 90 16 144/118 88 12/14/19 18:00 90.2 F L 12/14/19 17:48 14 12/14/19 14:14 61 16 73/37 96 12/14/19 12:00 80.1 F L 12/14/19 11:58 58 L 16 120/80 95 12/14/19 11:50 80.1 F L 12/14/19 11:30 40 L 16 67/42 98 12/14/19 11:18 16 99 - Physical Examination General: Other HEENT: Positive: PERRL Neck: Positive: neck supple, trachea midline Cardiac: Positive: Reg Rate and Rhythm Lungs: Positive: Decreased Breath Sounds Neuro: Positive: Other (sedated) Abdomen: Negative: Tender Skin: Negative: Rash Extremities: Absent: edema - Labs and Meds Cardiac Enzymes 12/14/19 12/15/19 12/15/19 Range/Units 10:50 04:55 09:48 AST 17 59 H (5-40) units/L Lactate Dehydrogenase 290 H (91-180) units/L Coagulation 12/14/19 12/14/19 12/15/19 Range/Units 10:50 13:42 04:55 PT 97.2 H 50.7 H 57.9 H (12.2-14.9) Sec. INR 12.40 H* 5.42 H* 6.42 H* (0.87-1.13) APTT 90.2 H* 48.7 H (24.2-36.6) Sec. Lipids 12/14/19 Range/Units 12:15 Triglycerides 76 (2-149) mg/dL Cholesterol 71 (50-199) mg/dL HDL Cholesterol 37 L (40-59) mg/dL Cholesterol/HDL Ratio 1.91 % CBC 12/14/19 12/14/19 12/15/19 Range/Units 10:50 12:15 04:55 WBC 1.7 L* 3.8 L 4.7 (4.5-11.0) K/mm3 RBC 1.97 L 3.36 L 4.67 (3.65-5.03) M/mm3 Hgb 5.9 L* 10.1 D 14.0 D (10.1-14.3) gm/dl Hct 17.6 L* 29.8 L D 41.4 D (30.3-42.9) % Plt Count 73 L 130 L 218 (140-440) K/mm3 Comprehensive Metabolic Panel 12/14/19 12/15/19 12/15/19 Range/Units 10:50 04:55 09:48 Sodium 141 138 (137-145) mmol/L Potassium 2.0 L* 4.7 D (3.6-5.0) mmol/L Chloride 116.5 H 100.3 (98-107) mmol/L Carbon Dioxide 16 L 19 L (22-30) mmol/L BUN 17 31 H (7-17) mg/dL Creatinine 1.0 2.5 H D (0.6-1.2) mg/dL Glucose 66 76 88 (65-100) mg/dL Calcium 5.0 L* 9.6 D (8.4-10.2) mg/dL AST 17 59 H (5-40) units/L ALT 9 28 (7-56) units/L Alkaline Phosphatase 17 L 43 (35-129) units/L Total Protein 2.6 L 6.2 L D (6.3-8.2) g/dL Albumin 1.4 L 2.9 L (3.9-5) g/dL - Imaging and Cardiology EKG: report reviewed, image reviewed Echo: pending - Telemetry EKG Rhythm: Sinus Rhythm
[2019-12-15] MEDS ORDERED: ACETAMINOPHEN 325 MG TAB PO PRN (11:03)
[2019-12-15] MEDS ORDERED: HYDROmorphone 1 MG/1 ML INJ IV PRN (11:03)
--- NOTE | 2019-12-15 11:04 | Progress Note ---
Assessment and Plan Assessment and plan: Septic shock. Patient meets criteria for sepsis given the leukopenia, hypothermia, tachycardia, tachypnea and diagnosis of pneumonia. Patient with no evidence of cardiogenic shock with normal echocardiogram per cardiology. I discussed the case with Dr. Ramirez. ID consulted. We will start IV antibi otics (Rocephin and azithromycin) and follow-up blood, sputum and urine cultures. COVID-19 testing and isolation precautions. Trend inflammatory markers. Continue pressors to maintain MAP>65. Patient currently on dopamine and Levophed. Elevated CRP. Check lactic acid levels. Acute hypoxic respiratory failure. Continue mechanical ventilation per protocol. Pulmonary consulted. Check CTA of chest Coagulopathy. Hold anticoagulation at this time, IV vitamin K x1, repeat INR in a.m., supportive care. No active bleeding. H&H stable. Consider FFP as needed. Consider hematology consultation. Toxic metabolic encephalopathy. Continue to treat underlying causes. Elevated D-dimer. Check CTA of chest. Hypothermia. Check TSH, r/o myxedema coma. The high probability of a clinically significant, sudden or life threatening deterioration of the [respiratory, cardiac] system(s) required my full and direct attention, intervention and personal management. The aggregate critical care time was [33] minutes. This time is in addition to time spent performing re ported procedures but includes the following: [x] Data Review and interpretation [x] Patient assessment and monitoring of vital signs [x] Documentation [x] Medication orders and management History Interval history: No new issues Hospitalist Physical - Constitutional Vitals: Temp Pulse Resp BP Pulse Ox 98.8 F 101 H 25 H 141/75 96 12/15/19 07:10 12/15/19 10:37 12/15/19 10:37 12/15/19 10:37 12/15/19 10:37 General appearance: Present: mild distress - EENT Eyes: Present: PERRL, EOM intact ENT: hearing intact, clear oral mucosa, dentition normal - Neck Neck: Present: supple, normal ROM - Respiratory Respiratory effort: normal Respiratory: bilateral: CTA - Cardiovascular Rhythm: regular Heart Sounds: Present: S1 & S2. Absent: gallop, rub - Extremities Extremities: no ischemia, No edema, Full ROM - Abdominal General gastrointestinal: soft, non-tender, non-distended, normal bowel sounds - Integumentary Integumentary: Present: clear, warm, dry - Neurologic Neurologic: CNII-XII intact, moves all extremities HEART Score - HEART Score Troponin: Troponin T 0.034 ng/mL (0.00-0.029) H 12/14/19 15:45 Results - Labs CBC & Chem 7: 12/15/19 04:55 12/15/19 09:48 Labs: Laboratory Last Values WBC 4.7 K/mm3 (4.5-11.0) 12/15/19 04:55 RBC 4.67 M/mm3 (3.65-5.03) 12/15/19 04:55 Hgb 14.0 gm/dl (10.1-14.3) D 12/15/19 04:55 Hct 41.4 % (30.3-42.9) D 12/15/19 04:55 MCV 89 fl (79-97) 12/15/19 04:55 MCH 30 pg (28-32) 12/15/19 04:55 MCHC 34 % (30-34) 12/15/19 04:55 RDW 19.9 % (13.2-15.2) H 12/15/19 04:55 Plt Count 218 K/mm3 (140-440) 12/15/19 04:55 Add Manual Diff Complete 12/14/19 10:50 Total Counted 100 12/14/19 10:50 Seg Neuts % (Manual) 85.0 % (40.0-70.0) H 12/14/19 10:50 Band Neutrophils % 0 % 12/14/19 10:50 Lymphocytes % (Manual) 13.0 % (13.4-35.0) L 12/14/19 10:50 Reactive Lymphs % (Man) 0 % 12/14/19 10:50 Monocytes % (Manual) 1.0 % (0.0-7.3) 12/14/19 10:50 Eosinophils % (Manual) 1.0 % (0.0-4.3) 12/14/19 10:50 Basophils % (Manual) 0 % (0.0-1.8) 12/14/19 10:50 Metamyelocytes % 0 % 12/14/19 10:50 Myelocytes % 0 % 12/14/19 10:50 Promyelocytes % 0 % 12/14/19 10:50 Blast Cells % 0 % 12/14/19 10:50 Nucleated RBC % 1.0 % (0.0-0.9) H 12/14/19 10:50 Seg Neutrophils # Man 1.4 K/mm3 (1.8-7.7) L 12/14/19 10:50 Band Neutrophils # 0.0 K/mm3 12/14/19 10:50 Lymphocytes # (Manual) 0.2 K/mm3 (1.2-5.4) L 12/14/19 10:50 Abs React Lymphs (Man) 0.0 K/mm3 12/14/19 10:50 Monocytes # (Manual) 0.0 K/mm3 (0.0-0.8) 12/14/19 10:50 Eosinophils # (Manual) 0.0 K/mm3 (0.0-0.4) 12/14/19 10:50 Basophils # (Manual) 0.0 K/mm3 (0.0-0.1) 12/14/19 10:50 Metamyelocytes # 0.0 K/mm3 12/14/19 10:50 Myelocytes # 0.0 K/mm3 12/14/19 10:50 Promyelocytes # 0.0 K/mm3 12/14/19 10:50 Blast Cells # 0.0 K/mm3 12/14/19 10:50 WBC Morphology Not Reportable 12/14/19 10:50 Hypersegmented Neuts Not Reportable 12/14/19 10:50 Hyposegmented Neuts Not Reportable 12/14/19 10:50 Hypogranular Neuts Not Reportable 12/14/19 10:50 Smudge Cells Not Reportable 12/14/19 10:50 Toxic Granulation Not Reportable 12/14/19 10:50 Toxic Vacuolation Not Reportable 12/14/19 10:50 Dohle Bodies Not Reportable 12/14/19 10:50 Pelger-Huet Anomaly Not Reportable 12/14/19 10:50 Lucretia Rods Not Reportable 12/14/19 10:50 Platelet Estimate Consistent w auto 12/14/19 10:50 Clumped Platelets Not Reportable 12/14/19 10:50 Plt Clumps, EDTA Not Reportable 12/14/19 10:50 Large Platelets Not Reportable 12/14/19 10:50 Giant Platelets Not Reportable 12/14/19 10:50 Platelet Satelliting Not Reportable 12/14/19 10:50 Plt Morphology Comment Not Reportable 12/14/19 10:50 RBC Morphology Not Reportable 12/14/19 10:50 Dimorphic RBCs Not Reportable 12/14/19 10:50 Polychromasia Not Reportable 12/14/19 10:50 Hypochromasia Not Reportable 12/14/19 10:50 Poikilocytosis 1+ 12/14/19 10:50 Anisocytosis 1+ 12/14/19 10:50 Microcytosis Not Reportable 12/14/19 10:50 Macrocytosis Not Reportable 12/14/19 10:50 Spherocytes Not Reportable 12/14/19 10:50 Pappenheimer Bodies Not Reportable 12/14/19 10:50 Sickle Cells Not Reportable 12/14/19 10:50 Target Cells Rare 12/14/19 10:50 Tear Drop Cells Not Reportable 12/14/19 10:50 Ovalocytes Not Reportable 12/14/19 10:50 Helmet Cells Not Reportable 12/14/19 10:50 Cannon-Toco Bodies Not Reportable 12/14/19 10:50 [place] Rings Not Reportable 12/14/19 10:50 Buras Cells 1+ 12/14/19 10:50 Bite Cells Not Reportable 12/14/19 10:50 Crenated Cell Not Reportable 12/14/19 10:50 Elliptocytes Not Reportable 12/14/19 10:50 Acanthocytes (Spur) Not Reportable 12/14/19 10:50 Rouleaux Not Reportable 12/14/19 10:50 Hemoglobin C Crystals Not Reportable 12/14/19 10:50 Schistocytes Not Reportable 12/14/19 10:50 Malaria parasites Not Reportable 12/14/19 10:50 Lux Bodies Not Reportable 12/14/19 10:50 Hem Pathologist Commnt No 12/14/19 10:50 PT 57.9 Sec. (12.2-14.9) H 12/15/19 04:55 INR 6.42 (0.87-1.13) H* 12/15/19 04:55 APTT 48.7 Sec. (24.2-36.6) H 12/14/19 13:42 D-Dimer 1523.00 ng/mlDDU (0-234) H 12/15/19 08:18 ABG pH 7.393 pH Units (7.350-7.450) 12/15/19 04:28 POC ABG pCO2 58.2 mmHg (32.0-48.0) H 12/14/19 12:41 ABG pCO2 29.8 mm Hg 12/15/19 04:28 POC ABG pO2 105.4 mmHg (83-108) 12/14/19 12:41 ABG pO2 84.9 mm Hg (80.0-90.0) 12/15/19 04:28 POC ABG HCO3 22.9 12/14/19 12:41 ABG HCO3 17.8 mmol/L (20.0-26.0) L 12/15/19 04:28 ABG O2 Saturation 96.9 % (95.0-99.0) 12/15/19 04:28 ABG O2 Content 18.7 (0.0-44) 12/15/19 04:28 POC ABG Base Excess -5.3 12/14/19 12:41 ABG Base Excess -5.8 mmol/L (-2.0-3.0) L 12/15/19 04:28 ABG Hemoglobin 14.0 gm/dl (12.0-16.0) 12/15/19 04:28 ABG Carboxyhemoglobin 1.0 % (0.0-5.0) 12/15/19 04:28 ABG Methemoglobin 0.7 % (0.0-1.5) 12/15/19 04:28 ABG Sodium 133.9 mmol/L (136.0-145.0) L 12/14/19 12:41 ABG Potassium 2.9 mmol/L (3.40-4.50) L 12/14/19 12:41 ABG Chloride 103.0 mmol/L (98-107) 12/14/19 12:41 ABG Glucose 118 mg/dL (65-95) H 12/14/19 12:41 Oxyhemoglobin 95.2 % (95.0-99.0) 12/15/19 04:28 FiO2 70 % 12/15/19 04:28 Sodium 138 mmol/L (137-145) 12/15/19 04:55 Potassium 4.7 mmol/L (3.6-5.0) D 12/15/19 04:55 Chloride 100.3 mmol/L (98-107) 12/15/19 04:55 Carbon Dioxide 19 mmol/L (22-30) L 12/15/19 04:55 Anion Gap 23 mmol/L 12/15/19 04:55 BUN 31 mg/dL (7-17) H 12/15/19 04:55 Creatinine 2.5 mg/dL (0.6-1.2) H D 12/15/19 04:55 Estimated GFR 24 ml/min 12/15/19 04:55 BUN/Creatinine Ratio 12 % 12/15/19 04:55 Glucose 88 mg/dL (65-100) 12/15/19 09:48 POC Glucose 117 mg/dL (70-105) H 12/14/19 10:37 Calcium 9.6 mg/dL (8.4-10.2) D 12/15/19 04:55 Magnesium 1.30 mg/dL (1.7-2.3) L 12/14/19 12:15 Ferritin 1210.0 ng/mL (10.0-200.0) H 12/15/19 09:48 Total Bilirubin 0.30 mg/dL (0.1-1.2) 12/15/19 04:55 AST 59 units/L (5-40) H 12/15/19 04:55 ALT 28 units/L (7-56) 12/15/19 04:55 Alkaline Phosphatase 43 units/L (35-129) 12/15/19 04:55 Ammonia 15.0 umol/L (25-60) L 12/14/19 10:50 Lactate Dehydrogenase 290 units/L (91-180) H 12/15/19 09:48 Troponin T 0.034 ng/mL (0.00-0.029) H 12/14/19 15:45 C-Reactive Protein 13.40 mg/dL (0.00-1.30) H 12/15/19 09:48 Total Protein 6.2 g/dL (6.3-8.2) L D 12/15/19 04:55 Albumin 2.9 g/dL (3.9-5) L 12/15/19 04:55 Albumin/Globulin Ratio 0.9 % 12/15/19 04:55 Triglycerides 76 mg/dL (2-149) 12/14/19 12:15 Cholesterol 71 mg/dL (50-199) 12/14/19 12:15 LDL Cholesterol Direct 15 mg/dL (50-130) L 12/14/19 12:15 HDL Cholesterol 37 mg/dL (40-59) L 12/14/19 12:15 Cholesterol/HDL Ratio 1.91 % 12/14/19 12:15 TSH 2.240 mlU/mL (0.270-4.200) 12/14/19 15:45 Free T4 1.30 ng/dL (0.76-1.46) 12/14/19 15:45 Arterial Blood Glucose 118 mg/dL (65-95) H 12/14/19 12:41 Arterial Blood Ionized Calcium 5.2 mg/dL (4.6-5.3) 12/14/19 12:41 Urine Color Yellow (Yellow) 12/14/19 Unknown Urine Turbidity Slightly-cloudy (Clear) 12/14/19 Unknown Urine pH 5.0 (5.0-7.0) 12/14/19 Unknown Ur Specific Friend 1.021 (1.003-1.030) 12/14/19 Unknown Urine Protein 30 mg/dl mg/dL (Negative) 12/14/19 Unknown Urine Glucose (UA) Neg mg/dL (Negative) 12/14/19 Unknown Urine Ketones Tr mg/dL (Negative) 12/14/19 Unknown Urine Blood Neg (Negative) 12/14/19 Unknown Urine Nitrite Neg (Negative) 12/14/19 Unknown Urine Bilirubin Neg (Negative) 12/14/19 Unknown Urine Urobilinogen < 2.0 mg/dL (<2.0) 12/14/19 Unknown Ur Leukocyte Esterase Neg (Negative) 12/14/19 Unknown Urine WBC (Auto) 5.0 /HPF (0.0-6.0) 12/14/19 Unknown Urine RBC (Auto) 3.0 /HPF (0.0-6.0) 12/14/19 Unknown U Epithel Cells (Auto) 1.0 /HPF (0-13.0) 12/14/19 Unknown Hyaline Casts 5 /LPF 12/14/19 Unknown Urine Mucus Few /HPF 12/14/19 Unknown Urine Opiates Screen Presumptive negative 12/14/19 Unknown Urine Methadone Screen Presumptive negative 12/14/19 Unknown Ur Barbiturates Screen Presumptive negative 12/14/19 Unknown Valproic Acid 59.0 ug/mL (50-100) 12/14/19 12:15 Ur Phencyclidine Scrn Presumptive negative 12/14/19 Unknown Ur Amphetamines Screen Presumptive positive 12/14/19 Unknown U Benzodiazepines Scrn Presumptive negative 12/14/19 Unknown Urine Cocaine Screen Presumptive negative 12/14/19 Unknown U Marijuana (THC) Screen Presumptive negative 12/14/19 Unknown Drugs of Abuse Note Disclamer 12/14/19 Unknown Plasma/Serum Alcohol < 0.01 % (0-0.07) 12/14/19 10:50 Blood Type O POSITIVE 12/14/19 12:15 Antibody Screen Negative 12/14/19 12:15 Crossmatch See Detail 12/14/19 12:15 Microbiology: Microbiology 12/14/19 12:15 Peripheral/Venous Blood Culture - Preliminary Culture in Progress 12/14/19 12:15 Peripheral/Venous Blood Culture - Preliminary Culture in Progress Tovar/IV: IV Catheter Type [Right INT / Saline Lock Forearm] IV Catheter Type [Right] INT / Saline Lock Active Medications - Current Medications Current Medications: Generic Name Dose Route Start Last Admin Trade Name Freq PRN Reason Stop Dose Admin Acetaminophen 650 mg 12/14/19 16:52 Tylenol PO Q4H PRN Pain MILD(1-3)/Fever >100.5/SHARMA Albuterol 2.5 mg 12/14/19 15:42 Proventil IH Q3HRT PRN Shortness Of Breath Atorvastatin Calcium 80 mg 12/14/19 22:00 12/15/19 05:26 Lipitor PO Not Given HS BRANDEN Divalproex Sodium 500 mg 12/14/19 22:00 12/15/19 05:[address] PO Not Given BID BRANDEN Escitalopram Oxalate 15 mg 12/15/19 10:00 Lexapro PO DAILY BRANDEN Hydrophilic Ointment 1 applic 12/15/19 08:10 Vaseline Lip Therapy TP Q2HR PRN Dry Lips Dopamine HCl/Dextrose 800 mg in 250 mls @ 3.912 mls/hr 12/14/19 10:59 12/15/19 10:39 Intropin Drip 800 Mg/D5w 250 Ml IV 12/17/19 02:53 10 mcg/kg/min TITR ONE 19.561 mls/hr Titration Protocol 2 MCG/KG/MIN Norepinephrine 4 mg in 250 mls @ 7.5 mls/hr 12/14/19 21:21 12/15/19 10:20 Levophed Drip 4 Mg/Ns 250 Ml IV 18 mcg/min TITR BRANDEN 67.5 mls/hr Titration Protocol 2 MCG/MIN Propofol 1,000 mg in 100 mls @ 3.13 mls/hr 12/15/19 09:00 12/15/19 09:05 Diprivan 10 Mg/Ml IV 5 mcg/kg/min TITR BRANDEN 3.13 mls/hr Administration Protocol 5 MCG/KG/MIN Multi-Ingred Cream/Lotion/Oil/Oint 1 applic 12/15/19 08:10 Artificial Tears Ophth Oint OU Q4HR PRN Dry Eye(s) Pantoprazole Sodium 40 mg 12/15/19 10:00 12/15/19 10:07 Protonix IV 40 mg QDAY BRANDEN Administration Sodium Chloride 10 ml 12/14/19 22:00 12/14/19 23:00 Sodium Chloride Flush Syringe 10 Ml IV 10 ml BID BRANDEN Administration Sodium Chloride 10 ml 12/14/19 15:42 Sodium Chloride Flush Syringe 10 Ml IV PRN PRN LINE FLUSH Nutrition/Malnutrition Assess - Dietary Evaluation Nutrition/Malnutrition Findings: Nutrition Notes Start: 12/15/19 10:20 Freq: Status: Active Protocol: Document 12/15/19 10:20 LM (Rec: 12/15/19 10:35 LM [id number]) Nutrition Notes Need for Assessment generated from: MD Order Initial or Follow up Assessment Current Diagnosis CKD(stage I-IV),COPD,Coronary Artery Disease,Hypertension, Heart Failure Other Pertinent Diagnosis [place], cardiogenic shock, pulmonary embolism, bipolar, lupus Current Diet NPO Labs/Tests BUN 31 Cr 2.5 Pertinent Medications Levophed Propofol Height 5 ft 9 in Weight 104.326 kg [place] Body Weight (kg) 65.90 BMI 34.0 Weight Status Obese Subjective/Other Information MD consult to evaluate nutritional intake. Pt is on the vent and in ED. Burn Absent Trauma Absent Current % PO Negligible Minimum of two criteria No physical signs of malnutrition #1 Nutrition Diagnosis Inadequate oral intake Etiology Mechanical vent As Evidenced by Signs and Symptoms Pt NPO Is patient on ventilator? Yes Is Patient Ambulatory and/or Out of Bed No REE-([place] Jeor-confined to bed) 1998.956 Kcal/Kg value to use for calculation 17 Approximate Energy Requirements Using 1774 kcal/Kg Calculation Used for Recommendations Kcal/kg Additional Notes Protein: 132g (>/= 2g/kg using IBW 66kg) Fluid: 1ml/kcal Nutrition Intervention Change Diet Order: TF when medically feasible Nutrition Support: Osmolite 1.5 at 50ml/hr Flush 150ml q4h Kcal 1,800 Protein (gm) 75 Fluid (mL) 914 Goal #1 Start TF when medically feasible Anticipated Discharge Needs: unable to determine at this time Follow-Up By: 12/17/19 Additional Comments F/U for TF consult/extubation
--- NOTE | 2019-12-15 11:36 | Consultation ---
History of Present Illness Consult date: 12/15/19 Requesting physician: MINOR GOFF Reason for consult: other (Critical care, Vent management) History of present illness: HISTORY PER MEDICAL RECORDS.PATIENT IS SEDATED AND INTUBATED, UNABLE TO PROVIDE A HISTORY 64-year-old female with hypertension, [place], CHF, diabetes, chronic kidney disease, coronary artery disease status post stent placement, chronic obstructive pulmonary disease, systemic lupus erythematosus, bipolar disorder, pulmonary embolism currently on therapeutic anticoagulation with Coumadin presents to ED for evaluation. Patient is confused and lethargic and unable to provide history. Patient history taken from EMS staff, ED staff, as well as corrections staff. Patient is currently incarcerated. As per staff, the patient was found by corrections officers to be confused. EMS was notified and upon arrival the patient was found to be in distress and subsequently transported to [facility] for fur ther care and evaluation. Patient seen and evaluated in the emergency department. All lab and imaging studies reviewed. Patient found to have symptoms consistent with congestive heart failure, cardiogenic shock, metabolic encephalopathy, as well as supratherapeutic INR. Patient admitted to ICU and initiated on IV pressor support. Cardiology team consulted in ED. No further history is obtainable. No prior admission for review. No medication listed at time of admission for reconciliation. Patient is confused and lethargic at the time of my evaluation and is unable to provide history but patient has a positive gag reflex and is able to protect her airway without difficulty. Patient seen and examined. Obtunded, hypotensive Vitals, labs, medications, chart and imaging reviewed. Past History Past Medical History: acute [place], heart failure, pulmonary embolism, other (See HPI) Past Surgical History: appendectomy Social history: . denies: smoking, alcohol abuse, prescription drug abuse Family history: hypertension Medications and Allergies Allergies Allergy/AdvReac Type Severity Reaction Status Date / Time aspirin Allergy ABD PAIN Verified 01/24/14 14:11 ibuprofen Allergy Unknown Verified 09/04/19 06:25 latex Allergy Rash Verified 01/24/14 14:11 lithium Allergy Hives Verified 01/24/14 14:11 peanut Allergy Unknown Verified 09/04/19 06:25 Penicillins Allergy Itching Verified 01/24/14 14:11 quetiapine [From Seroquel] Allergy Unknown Verified 09/04/19 06:25 shellfish derived Allergy Vomiting Verified 09/04/19 06:25 tomato Allergy Unknown Verified 09/04/19 06:25 zolpidem [From Ambien] Allergy Unknown Verified 09/04/19 06:25 Home Medications Medication Instructions Recorded Confirmed Last Taken Type carvediloL [Coreg] 1 tab PO BID 01/28/14 12/14/19 01/29/14 History metFORMIN [Glucophage] 1 tab PO BID 01/28/14 12/14/19 01/29/14 History Acetaminophen [Acetaminophen TAB] 650 mg PO Q4H PRN tablet 09/06/19 12/14/19 Unknown Rx AtorvaSTATin 80 mg PO HS 09/09/19 12/14/19 Unknown History Escitalopram 15 mg PO DAILY 09/09/19 12/14/[address] [Arun Chavez] 500 mg PO BID #60 tablet 09/10/19 12/14/19 Unknown Rx Benztropine Mesylate 1 mg 12/14/19 Unknown History Insulin Regular, Human [Novolin R] 1 units IJ 12/14/19 Unknown History Warfarin 3 mg 12/14/19 Unknown History risperiDONE [RisperDAL] 1 mg PO 12/14/19 Unknown History traZODone 150 mg 12/14/19 Unknown History Active Meds: Active Medications Acetaminophen (Tylenol) 650 mg PO Q6H PRN PRN Reason: Pain, Mild (1-3) Albuterol (Proventil) 2.5 mg IH Q3HRT PRN PRN Reason: Shortness Of Breath Atorvastatin Calcium (Lipitor) [address] [facility] Last Admin: 12/15/19 05:26 Dose: Not Given Documented by: Divalproex Sodium (Arun Chavez) 500 mg PO BID [facility] Last Admin: 12/15/19 05:25 Dose: Not Given Documented by: Escitalopram Oxalate (Lexapro) 15 mg PO DAILY [facility] Hydromorphone HCl (Dilaudid) 0.25 mg IV Q4H PRN PRN Reason: Pain, Moderate (4-6) Hydrophilic Ointment (Vaseline Lip Therapy) 1 applic TP Q2HR PRN PRN Reason: Dry Lips Dopamine HCl/Dextrose (Intropin Drip 800 Mg/D5w 250 Ml) 800 mg in 250 mls @ 3.912 mls/hr IV TITR ONE; Protocol Stop: 12/17/19 02:53 Last Titration: 12/15/19 10:39 Dose: 10 mcg/kg/min, 19.561 mls/hr Documented by: Norepinephrine (Levophed Drip 4 Mg/Ns 250 Ml) 4 mg in 250 mls @ 7.5 mls/hr IV TITR BRANDEN; Protocol Last Titration: 12/15/19 10:20 Dose: 18 mcg/min, 67.5 mls/hr Documented by: Propofol (Diprivan 10 Mg/Ml) 1,000 mg in 100 mls @ 3.13 mls/hr IV TITR BRANDEN; Protocol Last Admin: 12/15/19 09:05 Dose: 5 mcg/kg/min, 3.13 mls/hr Documented by: Ceftriaxone Sodium (Rocephin/Ns 2 Gm/100 Ml) 2 gm in 100 mls @ 200 mls/hr IV Q24HR BRANDEN; Protocol Azithromycin 500 mg/ Sodium (Chloride) 250 mls @ 250 mls/hr IV Q24HR BRANDEN; Protocol Multi-Ingred Cream/Lotion/Oil/Oint (Artificial Tears Ophth Oint) 1 applic OU Q4HR PRN PRN Reason: Dry Eye(s) Pantoprazole Sodium (Protonix) 40 mg IV QDAY [facility] Last Admin: 12/15/19 10:07 Dose: 40 mg Documented by: Sodium Chloride (Sodium Chloride Flush Syringe 10 Ml) 10 ml IV BID [facility] Last Admin: 12/14/19 23:00 Dose: 10 ml Documented by: Sodium Chloride (Sodium Chloride Flush Syringe 10 Ml) 10 ml IV PRN PRN PRN Reason: LINE FLUSH Review of Systems ROS unobtainable: due to endotracheal tube, due to mental status Physical Examination Vital signs: Vital Signs Resp Pulse Ox 16 99 12/14/19 11:18 12/14/19 11:18 General appearance: other (sedated on propofol) Eyes: non-icteric, other (orally intubated ETT at 23cm at the lip) Neck: supple, no lymphadenopathy, no JVD Effort: mildly labored Ascultation: Bilateral: diminished breath sounds, rhonchi Cardiovascular: regular rate and rhythm, other (S1,S2) Gastrointestinal: normoactive bowel sounds, soft, non-tender Extremities: no cyanosis, no edema, pulses normal, other (Femoral CVC) unable to assess Results - Laboratory Findings CBC and BMP: 12/15/19 04:55 12/15/19 09:48 ABG ABG pH 7.393 pH Units (7.350-7.450) 12/15/19 04:28 POC ABG pCO2 58.2 mmHg (32.0-48.0) H 12/14/19 12:41 ABG pCO2 29.8 mm Hg 12/15/19 04:28 POC ABG pO2 105.4 mmHg (83-108) 12/14/19 12:41 ABG pO2 84.9 mm Hg (80.0-90.0) 12/15/19 04:28 POC ABG HCO3 22.9 12/14/19 12:41 ABG O2 Saturation 96.9 % (95.0-99.0) 12/15/19 04:28 PT/INR, D-dimer PT 57.9 Sec. (12.2-14.9) H 12/15/19 04:55 INR 6.42 (0.87-1.13) H* 12/15/19 04:55 D-Dimer 1523.00 ng/mlDDU (0-234) H 12/15/19 08:18 Abnormal lab findings: Abnormal Labs 12/14/19 12/14/19 12/14/19 10:37 10:50 10:50 WBC 1.7 L* RBC 1.97 L Hgb 5.9 L* Hct 17.6 L* RDW 20.4 H Plt Count 73 L Seg Neuts % (Manual) 85.0 H Lymphocytes % (Manual) 13.0 L Nucleated RBC % 1.0 H Seg Neutrophils # Man 1.4 L Lymphocytes # (Manual) 0.2 L PT INR APTT D-Dimer ABG pH POC ABG pCO2 ABG pO2 ABG HCO3 ABG O2 Saturation ABG Base Excess ABG Hemoglobin ABG Sodium ABG Potassium ABG Glucose Potassium 2.0 L* Chloride 116.5 H Carbon Dioxide 16 L BUN Creatinine POC Glucose 117 H Calcium 5.0 L* Magnesium Ferritin AST Alkaline Phosphatase 17 L Ammonia Lactate Dehydrogenase Troponin T C-Reactive Protein Total Protein 2.6 L Albumin 1.4 L LDL Cholesterol Direct HDL Cholesterol Arterial Blood Glucose Crossmatch 12/14/19 12/14/19 12/14/19 10:50 10:50 12:15 WBC RBC Hgb Hct RDW Plt Count Seg Neuts % (Manual) Lymphocytes % (Manual) Nucleated RBC % Seg Neutrophils # Man Lymphocytes # (Manual) PT 97.2 H INR 12.40 H* APTT 90.2 H* D-Dimer ABG pH POC ABG pCO2 ABG pO2 ABG HCO3 ABG O2 Saturation ABG Base Excess ABG Hemoglobin ABG Sodium ABG Potassium ABG Glucose Potassium Chloride Carbon Dioxide BUN Creatinine POC Glucose Calcium Magnesium Ferritin AST Alkaline Phosphatase Ammonia 15.0 L Lactate Dehydrogenase Troponin T 0.033 H D C-Reactive Protein Total Protein Albumin LDL Cholesterol Direct 15 L HDL Cholesterol 37 L Arterial Blood Glucose Crossmatch 12/14/19 12/14/19 12/14/19 12:15 12:15 12:15 WBC 3.8 L RBC 3.36 L Hgb Hct 29.8 L D RDW 20.5 H Plt Count 130 L Seg Neuts % (Manual) Lymphocytes % (Manual) Nucleated RBC % Seg Neutrophils # Man Lymphocytes # (Manual) PT INR APTT D-Dimer ABG pH POC ABG pCO2 ABG pO2 ABG HCO3 ABG O2 Saturation ABG Base Excess ABG Hemoglobin ABG Sodium ABG Potassium ABG Glucose Potassium Chloride Carbon Dioxide BUN Creatinine POC Glucose Calcium Magnesium 1.30 L Ferritin AST Alkaline Phosphatase Ammonia Lactate Dehydrogenase Troponin T C-Reactive Protein Total Protein Albumin LDL Cholesterol Direct HDL Cholesterol Arterial Blood Glucose Crossmatch See Detail 12/14/19 12/14/19 12/14/19 12:41 13:42 15:45 WBC RBC Hgb Hct RDW Plt Count Seg Neuts % (Manual) Lymphocytes % (Manual) Nucleated RBC % Seg Neutrophils # Man Lymphocytes # (Manual) PT 50.7 H INR 5.42 H* APTT 48.7 H D-Dimer ABG pH 7.213 L POC ABG pCO2 58.2 H ABG pO2 ABG HCO3 ABG O2 Saturation ABG Base Excess ABG Hemoglobin 11.0 L ABG Sodium 133.9 L ABG Potassium 2.9 L ABG Glucose 118 H Potassium Chloride Carbon Dioxide BUN Creatinine POC Glucose Calcium Magnesium Ferritin AST Alkaline Phosphatase Ammonia Lactate Dehydrogenase Troponin T 0.034 H C-Reactive Protein Total Protein Albumin LDL Cholesterol Direct HDL Cholesterol Arterial Blood Glucose 118 H Crossmatch 12/15/19 12/15/19 12/15/19 01:25 04:28 04:55 WBC RBC Hgb Hct RDW 19.9 H Plt Count Seg Neuts % (Manual) Lymphocytes % (Manual) Nucleated RBC % Seg Neutrophils # Man Lymphocytes # (Manual) PT INR APTT D-Dimer ABG pH 7.322 L POC ABG pCO2 ABG pO2 232.6 H ABG HCO3 17.6 L 17.8 L ABG O2 Saturation 99.3 H ABG Base Excess -7.6 L -5.8 L ABG Hemoglobin ABG Sodium ABG Potassium ABG Glucose Potassium Chloride Carbon Dioxide BUN Creatinine POC Glucose Calcium Magnesium Ferritin AST Alkaline Phosphatase Ammonia Lactate Dehydrogenase Troponin T C-Reactive Protein Total Protein Albumin LDL Cholesterol Direct HDL Cholesterol Arterial Blood Glucose Crossmatch 12/15/19 12/15/19 12/15/19 04:55 04:55 08:18 WBC RBC Hgb Hct RDW Plt Count Seg Neuts % (Manual) Lymphocytes % (Manual) Nucleated RBC % Seg Neutrophils # Man Lymphocytes # (Manual) PT 57.9 H INR 6.42 H* APTT D-Dimer 1523.00 H ABG pH POC ABG pCO2 ABG pO2 ABG HCO3 ABG O2 Saturation ABG Base Excess ABG Hemoglobin ABG Sodium ABG Potassium ABG Glucose Potassium Chloride Carbon Dioxide 19 L BUN 31 H Creatinine 2.5 H D POC Glucose Calcium Magnesium Ferritin AST 59 H Alkaline Phosphatase Ammonia Lactate Dehydrogenase Troponin T C-Reactive Protein Total Protein 6.2 L D Albumin 2.9 L LDL Cholesterol Direct HDL Cholesterol Arterial Blood Glucose Crossmatch 12/15/19 12/15/19 09:48 09:48 WBC RBC Hgb Hct RDW Plt Count Seg Neuts % (Manual) Lymphocytes % (Manual) Nucleated RBC % Seg Neutrophils # Man Lymphocytes # (Manual) PT INR APTT D-Dimer ABG pH POC ABG pCO2 ABG pO2 ABG HCO3 ABG O2 Saturation ABG Base Excess ABG Hemoglobin ABG Sodium ABG Potassium ABG Glucose Potassium Chloride Carbon Dioxide BUN Creatinine POC Glucose Calcium Magnesium Ferritin 1210.0 H AST Alkaline Phosphatase Ammonia Lactate Dehydrogenase 290 H Troponin T C-Reactive Protein 13.40 H Total Protein Albumin LDL Cholesterol Direct HDL Cholesterol Arterial Blood Glucose Crossmatch - Diagnostic Findings Chest x-ray: image reviewed (Large right infiltrate, ETT in position) Assessment and Plan Septic shock. Patient meets criteria for sepsis given the leukopenia, hypothermia, tachycardia, tachypnea and diagnosis of pneumonia. Patient with no evidence of cardiogenic shock with normal echocardiogram per cardiology. Continue IV antibiotics (Rocephin and azithromycin) and follow-up blood, sputum and urine cultures. COVID-19 testing and isolation precautions. Trend inflammatory markers. Continue pressors to maintain MAP>65. Patient currently on dopamine and Levophed, add vasopresin as needed. Elevated CRP. -Volume resuscitation , remains hypotensive Acute hypoxic respiratory failure. Continue mechanical ventilation per protocol -VAP bundle addressed, aspiration precautions HOB>40 -Place small bowel feeding tube, confirm placement and start enteric nutritional support -VTE prophylaxis- SCD for now, was coagulopathic on admission -Mobility, off loading, frequent turning -Maintainnance of sleep wake cycle -Stress ulcer prophyalxis- PPI in view of coagulopathy -Accuchecks with glycemic control. Avoid hypoglycemia -ABG, CXR -Bronchodilaotrs -CT scan for large right infiltrate, possible aspiration -Discussed extensively with RT -Continue isolation per hospital protocol for PUI-COVID -Avoid nephrotoxins -Supportive transfusions to keep HgB >7g/dL -Agree with ID consult for antibiotic management Coagulopathy. Hold anticoagulation at this time, IV vitamin K x1, repeat INR in a.m., supportive care. No active bleeding. H&H stable. Toxic metabolic encephalopathy. Continue to treat underlying causes. Elevated D-dimer. Check CTA of chest. Hypothermia. Check TSH, r/o myxedema coma. Discussed with RT and RN Discussed with Cardiology The high probability of a clinically significant, sudden or life threatening deterioration of the [respiratory, cardiac] system(s) required my full and d irect attention, intervention and personal management. The aggregate critical care time was [37] minutes. This time is in addition to time spent performing reported procedures but includes the following: [x] Data Review and interpretation [x] Patient assessment and monitoring of vital signs [x] Documentation [x] Medication orders and management
[2019-12-15] MEDS ORDERED: AZITHROMYCIN 500 MG in SODIUM CHLORIDE 0.9% 250ML 250 ML IV SCH (12:00)
[2019-12-15] MEDS ORDERED: cefTRIAXone/NS 2 GM/100 ML 2 GM/100 ML BAG IV SCH (12:00)
[2019-12-15 12:25] LABS: Bilirubin,Urine NEG (Negative); Blood,Urine LG (Negative); Color,Urine Yellow (Yellow); Mucus,Urine FEW /HPF; Urobilinogen,Urine < 2.0 mg/dL (<2.0)
[2019-12-15 12:26] LABS: RBC,Urine > 182.0 /HPF (0.0-6.0)
[2019-12-15] MEDS ORDERED: SODIUM CHLORIDE 0.9% 1000 ML 1,000 ML IV SCH ×3 (13:22→20:30)
[2019-12-15] MEDS ORDERED: SIMPLE SYRUP 15 ML FEEDTUBE PRN (13:23)
[2019-12-15] MEDS ORDERED: LIPASE 10,500/PROTEASE 25,000/AMYLASE 43,750 (UNITS) DR CAP FEEDTUBE PRN (13:23)
[2019-12-15] MEDS ORDERED: SODIUM BICARBONATE 325 MG TAB FEEDTUBE PRN (13:23)
--- NOTE | 2019-12-15 13:34 | Cat Scan Report ---
CT chest wo con INDICATION / CLINICAL INFORMATION: Right lung atelectasis/lobar collapse. Recent diagnosis of pulmonary emboli. TECHNIQUE: Axial CT imaging of chest was obtained without contrast. Coronal and sagittal reformatted imaging obt ained and reviewed. All CT scans at this location are performed using CT dose reduction for ALARA by means of automated exposure control. COMPARISON: Recent chest radiograph performed today as well as prior CTA chest 11/18/2019 FINDINGS: CT chest without contrast shows near complete consolidation of the right lower lobe and partial conso lidation of the right upper lobe and right middle lobe. Air bronchograms are seen throughout the cons olidated lung. There is partial aeration of the right upper lobe. Although the exam is done without c ontrast I do not see an obvious mediastinal or hilar mass. The right mainstem bronchus and proximal b ronchi appear widely patent without obvious or visible endobronchial lesion. No right-sided pleural e ffusion. There is trace left pleural effusion. Left lung is grossly clear other than some minimal bas ilar atelectasis. Fluid is present throughout the esophagus most likely related to reflux. Heart size is normal. No pericardial effusion. Images obtained through the upper abdomen show inflammation in the left upper quadrant anteriorly whi ch I believe is most likely related to the colon. This could represent some focal colitis. This area is incompletely visualized so findings are unclear. Review of osseous structures demonstrates mild spondylitic change throughout the visualized spine IMPRESSION: 1. There is significant consolidation throughout the right lung, primarily affecting the right lower lobe as well as a portion of the right middle lobe and right upper lobe. Air bronchograms are present throughout the consolidated lung. This would favor bacterial pneumonia. No obvious mediastinal or hi lar mass or visible endobronchial lesion is identified at this time. 2. Trace left pleural effusion. 3. Although incompletely visualized, there is inflammatory masslike area in the left upper abdominal quadrant anteriorly more than likely related to the transverse colon. I cannot exclude the presence o f colitis and clinical correlation is recommended. Signer Name: Aurea Matos MD Signed: 12/15/2019 1:30 PM Workstation Name: [id number]
[2019-12-15] MEDS ORDERED: cefTRIAXone/NS 2 GM/100 ML 2 GM/100 ML BAG IV ONE (14:24)
--- NOTE | 2019-12-15 14:25 | XRay Report ---
ABDOMEN, SINGLE VIEW INDICATION / CLINICAL INFORMATION: tube placement. COMPARISON: None available. FINDINGS: No NG tube is identified within the lower chest region or abdomen. This would suggest that the tube i s more than likely coiled within the patient's throat. IMPRESSION: No NG tube is visualized within the lower chest or upper abdomen. Signer Name: Aurea Matos MD Signed: 12/15/2019 2:21 PM Workstation Name: [id number]
[2019-12-15] MEDS ORDERED: SODIUM CHLORIDE 0.9% 1000 ML 2,000 ML ONE (14:28)
[2019-12-15] MEDS ORDERED: ATROPINE 1 MG/ML VIAL ONE (16:33)
[2019-12-15] MEDS ORDERED: DOPamine/D5W 800 MG/250 ML DRIP IV ONE (16:33)
[2019-12-15] MEDS: IPRATROPIUM/ALBUTEROL SULFATE 3 ML AMPUL.NEB IH SCH ×3 (17:51→19:55)
--- NOTE | 2019-12-15 18:55 | Event Note ---
Date: 12/15/19 Code note I was informed by emergency department nurse that the patient was essentially recovered. Her blood pressure was 40 systolic and heart rate 30. Hospitalist has been paged. I intervene to see if I could be of assistance in the resuscitation. I understand that the patient has been treated for severe hypothermia. She was intubated. She is on 2 pressors and a propofol drip. Apparently she has been completely unresponsive today. I am told that she had to be restrained yesterday. Therefore, I am sure that she must of had some sort of cerebral function. However, this is my first time being involved in her care. I performed a quick cardiac ultrasound on the patient. I found the patient to have no evidence of cardiac activity. She was given 1 amp of epinephrine and 1 amp of bicarb. An Accu-Chek was ordered. CPR was initiated. CPR was stopped briefly for rhythm check. Patient had a March of P waves without ventricular activity. She was given another amp of epinephrine. Pupils were checked. The patient's pupils appear to be mid position. I do not think they are reactive but I did not have a bright light. There is chest rise with ventilations. After the second round of epinephrine the patient responded with a rhythm and a carotid pulse. Doppler exam of the extremities was negative but ultimately I was able to get a blood pressure. It was found to be over 100 systolic. The patient's propofol drip was discontinued. This was done secondary to her hypotension state, as well as, the need for neurological monitoring to ascertain whether she has any clinical brain function. I think at this point it is unlikely. Clinical impression Cardiac arrest Plan Discussed with hospitalist. Further intervention per hospitalist staff.
[2019-12-15 19:58] VITALS: BP 54/27
[2019-12-15] MEDS ORDERED: SODIUM CHLORIDE 0.9% 1000 ML 3,000 ML ONE (20:30)
[2019-12-15] MEDS ORDERED: SODIUM CHLORIDE 0.9% 1000 ML 2,000 ML IV ONE (21:34)
[2019-12-15] MEDS ORDERED: DEXTROSE 50% IN WATER (25GM) 50 ML SYRINGE IV ONE ×2 (22:07→22:08)
--- NOTE | 2019-12-15 22:12 | Event Note ---
Responded to bedside for cardiac arrest. Patient found in asystole with no spontaneous respirations. Patient is already intubated maxed out on dopamine and Levophed. CPR initiated with chest compressions. Patient received 2 doses of epinephrine and 1 dose of sodium bicarb and remained in asystole. Accu-Chek 27. 1 amp of D50 provided. Dr. Doss then came to the bedside to take over resuscitation efforts since patient is admitted to the hospitalist service. I participated in 15 minutes of resuscitation efforts
[2019-12-15] MEDS ORDERED: EPINEPHrine 1 MG/1 ML 8 MG in SODIUM CHLORIDE 0.9% 250ML 242 ML IV SCH (23:00)
--- NOTE | 2019-12-16 00:06 | Event Note ---
Date: 12/15/19 Code called on 64-year-old -[place] female who has been on admission for metabolic encephalopathy, cardiogenic shock, pneumonia with possible Covid 19. Resuscitative measures at been in place prior to my arrival. All resuscitative measures were continued according to ACLS protocol however all efforts put in place to resuscitate patient were unsuccessful. Upon exam patient's pupils were fixed and dilated No response to verbal commands or deep sternal rub. Chest-no breath sounds Cardiovascular exam-no peripheral pulses and no heart sounds Abdomen - soft and slightly distended Extremities-cold and clammy Central nervous system-no reflexes Patient pronounced on December 15 2019 at 22:23 PM Family members were promptly informed. Condolences were also offered.
--- NOTE | 2019-12-16 07:55 | Death Summary ---
Summary - Providers Date of service: 12/16/19 Consults: 12/14/19 11:27 Consult to Cardiology [CONS] Routine Consulting Provider: VINITA BECK Reason For Exam: Arrhythmia 12/14/19 16:52 Consult to Physician [CONS] Routine Comment: Consulting Provider: CEASAR CHRISTINA Physician Instructions: Reason For Exam: Cardiogenic Shock 12/15/19 08:10 Consult to Dietitian/Nutrition [CONS] Routine Physician Instructions: Reason For Exam: Reason for Consult: Evaluate nutritional intake 12/15/19 08:18 Consult to Physician [CONS] Routine Comment: Consulting Provider: ASTRID MOREL Physician Instructions: Reason For Exam: sepsis 12/15/19 13:24 Consult to Dietitian/Nutrition [CONS] Routine Physician Instructions: Assess nutrtn needs, initiate, modify, manage TF Reason For Exam: Reason for Consult: Write/Manage Tube Feeding Reason for Consult: Write/Manage Tube Feeding Attending: MINOR GOFF - summary Date of admission: 12/14/19 15:43 Date of : 12/15/19 Disposition: 64-year-old female with hypertension, [place], CHF, diabetes, chronic kidney disease, coronary artery disease status post stent placement, chronic obstructive pulmonary disease, systemic lupus erythematosus, bipolar disorder, pulmonary embolism currently on therapeutic anticoagulation with Coumadin presents to ED for evaluation. Patient is confused and lethargic and unable to provide history. Patient history taken from EMS staff, ED staff, as well as corrections staff. Patient was incarcerated. As per staff, the patient was found by corrections officers to be confused. EMS was notified and upon arrival the patient was found to be in distress and subsequently transported to [facility] for further care and evaluation. Patient seen and evaluated in the emergency department. Patient admitted with dx of septic shock, pna, uti, toxic metabolic encephalopathy, coagulopathy and acute hypoxic resp failure. Patient met criteria for septic shock given the leukopenia, hypothermia, tachycardia, tachypnea and diagnosis of pneumonia/uti and hypotension. Patient with no evidence of cardiogenic shock with normal EF on echocardiogram per cardiology. I discussed the case with Dr. Ramirez. ID consulted. Pt. started IV antibiotics (Rocephin and azithromycin) and blood, sputum and urine cultures. COVID-19 testing and isolation precautions initiated. Inflammatory markers ordered. Continue pressors to maintain MAP>65. Patient required pressors of dopamine and Levophed. Elevated CRP. Lactic acid levels were also elevated. Pt had two episodes of cardiac arrest in which ACLS protocol followed. Pt. unfortunately did not have ROSC on second code and was pronounced at 2223 12/15/19. - Final diagnosis (1) Septic shock Note: Final diagnosis: (2) Toxic metabolic encephalopathy Note: Final diagnosis: (3) Coagulopathy Note: Final diagnosis: (4) Pneumonia Note: Final diagnosis: (5) UTI (urinary tract infection) Note: Final diagnosis:
[2019-12-16] MEDS ORDERED: VALPROIC ACID 250 MG/5 ML ORAL LIQD FEEDTUBE SCH (10:00)
== END 2019-12-15 22:23 | DRG 871 ==
LOC: ED 10:14 → CC1 15:42 → ED 15:42 → CC1 15:42 → UNDOADMIN 15:43 → CC1 15:43 → EEVIPCON 15:43 → CC1 12-15 15:00 → UNDOADMIN 12-15 15:00 → ED 12-15 15:00 → CC1 12-15 15:00 → ED 12-15 22:23 → UNDODISIN 12-15 22:23 → CC1 12-15 22:23 → ED 12-16 04:38
PROVIDERS: ADMIT Internal Medicine; ATTEND Internal Medicine
PROC: 02HV33Z Insertion of Infusion Device into Superior Vena Cava, Percutaneous Approach (ICD-10-PCS; principal; 2019-12-14)
PROC: 30233N1 Transfusion of Nonautologous Red Blood Cells into Peripheral Vein, Percutaneous Approach (ICD-10-PCS; 2019-12-14)
PROC: 4A033R1 Measurement of Arterial Saturation, Peripheral, Percutaneous Approach (ICD-10-PCS; 2019-12-14)
PROC: 0BH17EZ Insertion of Endotracheal Airway into Trachea, Via Natural or Artificial Opening (ICD-10-PCS; 2019-12-15)
PROC: 5A1935Z Respiratory Ventilation, Less than 24 Consecutive Hours (ICD-10-PCS; 2019-12-15)
PROC: 5A12012 Performance of Cardiac Output, Single, Manual (ICD-10-PCS; 2019-12-15)
DX: A41.1 Sepsis due to other specified staphylococcus (principal); I21.A1 Myocardial infarction type 2; J96.01 Acute respiratory failure with hypoxia; G92 Toxic encephalopathy; R65.21 Severe sepsis with septic shock; J18.9 Pneumonia, unspecified organism; I13.0 Hypertensive heart and chronic kidney disease with heart failure and stage 1 through stage 4 chronic kidney disease, or unspecified chronic kidney disease; I50.31 Acute diastolic (congestive) heart failure; J90 Pleural effusion, not elsewhere classified; D68.9 Coagulation defect, unspecified; N39.0 Urinary tract infection, site not specified; N18.9 Chronic kidney disease, unspecified; E11.22 Type 2 diabetes mellitus with diabetic chronic kidney disease; F25.0 Schizoaffective disorder, bipolar type; J44.9 Chronic obstructive pulmonary disease, unspecified; I95.9 Hypotension, unspecified; D64.9 Anemia, unspecified; E87.6 Hypokalemia; E83.51 Hypocalcemia; Z88.6 Allergy status to analgesic agent; Z88.8 Allergy status to other drugs, medicaments and biological substances; Z88.0 Allergy status to penicillin; Z91.010 Allergy to peanuts; Z91.040 Latex allergy status; Z90.49 Acquired absence of other specified parts of digestive tract; Z86.711 Personal history of pulmonary embolism; Z79.01 Long term (current) use of anticoagulants; I25.10 Atherosclerotic heart disease of native coronary artery without angina pectoris; Z79.4 Long term (current) use of insulin; D69.6 Thrombocytopenia, unspecified; M32.9 Systemic lupus erythematosus, unspecified; Z95.5 Presence of coronary angioplasty implant and graft; R57.0 Cardiogenic shock; B96.89 Other specified bacterial agents as the cause of diseases classified elsewhere; I46.9 Cardiac arrest, cause unspecified
CPT/HCPCS: 36415; 36430; 36600; 70450; 71045; 71250; 74018; 80053; 80061; 80164; 80307; 80320; 81001; 82140; 82728; 82803; 82805; 82947; 82962; 83615; 83735; 84145; 84439; 84443; 84484; 85007; 85025; 85027; 85379; 85610; 85730; 86140; 86850; 86900; 86901; 86920; 87040; 87076; 87086; 87186; 90471; 93005; 93306; 94002; 94003; 94640; 96365; 96366; 96375; 96376; G0378; C9113; G0480; J0456; J0461; J0610; J0696; J1265; J2704; J3430; J3475; J3480; J7030; J7050; P9016; U0003